=== PATIENT | male | born 1960 | race Caucasian/White ===

== ENCOUNTER 2017-05-15 08:40 | Outpatient (RCR) | payer OTHER, SELFPAY | END 2017-05-23 23:59 | LOC: NS 08:40 | PROVIDERS: Family Provider Internal Medicine; PCP Internal Medicine; Visit Provider Internal Medicine | DX: E66.9 Obesity, unspecified (principal); Z68.30 Body mass index [BMI] 30.0-30.9, adult; E88.81 Metabolic syndrome and other insulin resistance; Z71.3 Dietary counseling and surveillance | CPT/HCPCS: 97803 ==

== ENCOUNTER 2017-06-18 11:18 | Outpatient (RCR) | payer OTHER, SELFPAY ==
[2017-04-20 07:46] VITALS: BP 150/98; BMI 30.1
== END 2017-06-20 23:59 ==
LOC: NS 11:18
PROVIDERS: Family Provider Internal Medicine; PCP Internal Medicine; Visit Provider Internal Medicine
DX: E66.9 Obesity, unspecified (principal); Z68.30 Body mass index [BMI] 30.0-30.9, adult; E88.81 Metabolic syndrome and other insulin resistance; Z71.3 Dietary counseling and surveillance
CPT/HCPCS: 97803

== ENCOUNTER 2017-07-17 09:00 | Outpatient (RCR) | payer OTHER, SELFPAY | END 2017-07-17 09:01 | LOC: NS 09:00 | PROVIDERS: Family Provider Internal Medicine; PCP Internal Medicine; Visit Provider Internal Medicine | DX: E66.9 Obesity, unspecified (principal); Z68.30 Body mass index [BMI] 30.0-30.9, adult; E88.81 Metabolic syndrome and other insulin resistance; Z71.3 Dietary counseling and surveillance | CPT/HCPCS: 97803 ==

== ENCOUNTER → 2018-01-29 07:07 | Outpatient (CLI) | payer OTHER, SELFPAY ==
[2018-01-29 08:13] LABS: Absolute Lymphocyte Count 2.03 X10^3/ul (0.83-4.51); Absolute Neutrophil Count 3.4 X10^3/uL (2.0-7.7); Basophil# 0.03 X10^3/uL; Basophil% 0.5 % (0-1); Eosinophil# 0.27 X10^3/uL; Eosinophils% 4.4 % (0-5); Hematocrit 43.8 % (40-54); Hemoglobin 15.3 g/dl (13.0-16.5); Lymphocyte # 2.03 X10^3/ul (4.0); Lymphocyte % 32.8 % (19-41); Mean Corp Hgb Conc 34.9 g/gl (32-36); Mean Corpuscular Hgb 29.7 pg (27.0-32.0); Mean Platelet Vol. 10.5 fl (6.2-12.0); Monocyte# 0.45 X10^3/uL; Monocyte% 7.3 % (0-10); Neutrophil # 3.39 X10^3/uL (2.7-7.7); Neutrophil % 54.7 % (47-70); POSITIVE COUNT NO; POSITIVE DIFFERENTIAL NO; POSITIVE MORPHOLOGY NO; Platelet Count 220 K/mm3 (150-450); RBC Distribution Width CV 12.7 % (11.6-14.6); RBC Distribution Width SD 39.1 fl (35.1-43.9); Red Blood Count 5.15 M/mm3 (4.6-6.2); White Blood Count 6.2 K/mm3 (4.4-11.0)
[2018-01-29 08:30] LABS: Anion Gap 6 (5-15); BUN 17 mg/dL (7-18); BUN/Creat Ratio 22.3 RATIO (10-20); Chloride 105 mmol/L (98-107); Creatinine, Serum 0.76 mg/dL (0.70-1.30); EST Glomerular Filtration Rate 112 mL/min (>60); Est Glom Filt Rate - Afr Amer 135 mL/min (>60); Glucose 129 mg/dL (74-106); Magnesium 2.1 mg/dL (1.6-2.6); PSA,Total - Annual Screen 1.07 ng/mL (0.00-4.00); Potassium 3.5 mmol/L (3.5-5.1); Sodium Level 143 mmol/L (136-145)
== END ==
PROVIDERS: Family Provider Internal Medicine; PCP Internal Medicine; Referring Provider Nurse Practitioner Family; Visit Provider Nurse Practitioner Family
DX: I10 Essential (primary) hypertension (principal); R25.2 Cramp and spasm; Z12.5 Encounter for screening for malignant neoplasm of prostate
CPT/HCPCS: 36415; 80048; 83735; 84153; 85025; G0103

== ENCOUNTER → 2018-02-05 07:17 | Outpatient (CLI) | payer OTHER, SELFPAY ==
[2018-02-05 11:04] LABS: ALB/GLOB Ratio 1.2 RATIO (0.9-2.4); AST(SGOT) 18 U/L (15-37); Alanine Aminotransfer ALT/SGPT 41 U/L (16-61); Albumin, Serum 3.8 g/dL (3.2-5.0); Alkaline Phosphatase 88 U/L (45-117); Anion Gap 6 (5-15); BUN 18 mg/dL (7-18); BUN/Creat Ratio 21.1 RATIO (10-20); Chloride 103 mmol/L (98-107); Cholesterol 162 mg/dL (200); Creatinine, Serum 0.85 mg/dL (0.70-1.30); EST Glomerular Filtration Rate 98 mL/min (>60); Est Glom Filt Rate - Afr Amer 119 mL/min (>60); Globulin 3.1 g/dL (2.2-4.2); Glucose 114 mg/dL (74-106); High Density Lipoprotein 34 mg/dL; Potassium 3.3 mmol/L (3.5-5.1); Protein, Total 6.9 g/dL (6.4-8.2); Sodium Level 143 mmol/L (136-145); Triglycerides 180 mg/dL; Very Low Density Lipoprotein 36 mg/dL (5-40)
== END ==
PROVIDERS: Family Provider Internal Medicine; PCP Internal Medicine; Referring Provider Nurse Practitioner Family; Visit Provider Nurse Practitioner Family
DX: E78.5 Hyperlipidemia, unspecified (principal)
CPT/HCPCS: 36415; 80053; 80061

== ENCOUNTER → 2018-03-08 10:14 | Outpatient (CLI) | payer OTHER, SELFPAY ==
[2018-03-08 11:58] LABS: Hemoglobin A1c 5.9 % (4.2-6.3)
[2018-03-08 12:04] LABS: Anion Gap 7 (5-15); BUN 15 mg/dL (7-18); Calcium,Total 8.4 mg/dL (8.5-10.1); Chloride 106 mmol/L (98-107); Creatinine, Serum 0.79 mg/dL (0.70-1.30); EST Glomerular Filtration Rate 107 mL/min (>60); Est Glom Filt Rate - Afr Amer 129 mL/min (>60); Glucose 110 mg/dL (74-106); Potassium 3.6 mmol/L (3.5-5.1); Sodium Level 143 mmol/L (136-145)
== END ==
PROVIDERS: Family Provider Internal Medicine; PCP Internal Medicine; Referring Provider Nurse Practitioner Family; Visit Provider Nurse Practitioner Family
DX: E87.6 Hypokalemia (principal); R73.09 Other abnormal glucose; E88.81 Metabolic syndrome and other insulin resistance; E66.9 Obesity, unspecified
CPT/HCPCS: 36415; 80048; 83036

== ENCOUNTER → 2018-09-27 | Outpatient (CLI) | payer OTHER, SELFPAY ==
[2018-09-26 14:02] VITALS: BMI 29.1
[2018-09-27 12:53] LABS: Anion Gap 6 (5-15); BUN 18 mg/dL (7-18); BUN/Creat Ratio 26.2 RATIO (10-20); Calcium,Total 8.4 mg/dL (8.5-10.1); Chloride 106 mmol/L (98-107); Creatinine, Serum 0.69 mg/dL (0.70-1.30); EST Glomerular Filtration Rate 125 mL/min (>60); Est Glom Filt Rate - Afr Amer 152 mL/min (>60); Glucose 113 mg/dL (74-106); Potassium 3.7 mmol/L (3.5-5.1); Sodium Level 144 mmol/L (136-145)
== END | disposition home or self-care (01) ==
LOC: BIMLAB 07:59
PROVIDERS: Family Provider Internal Medicine; PCP Internal Medicine; Visit Provider Internal Medicine
DX: I10 Essential (primary) hypertension (principal)
CPT/HCPCS: 36415; 80048

== ENCOUNTER → 2018-11-29 08:06 | Outpatient (CLI) | payer OTHER, SELFPAY ==
[2018-11-15 09:30] VITALS: BMI 27.0
[2018-11-29 12:37] LABS: Anion Gap 5 (5-15); BUN 18 mg/dL (7-18); BUN/Creat Ratio 26.4 RATIO (10-20); Calcium,Total 8.8 mg/dL (8.5-10.1); Chloride 107 mmol/L (98-107); Creatinine, Serum 0.68 mg/dL (0.70-1.30); EST Glomerular Filtration Rate 126 mL/min (>60); Est Glom Filt Rate - Afr Amer 153 mL/min (>60); Glucose 100 mg/dL (74-106); Potassium 3.5 mmol/L (3.5-5.1); Sodium Level 144 mmol/L (136-145)
== END ==
PROVIDERS: Family Provider Internal Medicine; PCP Internal Medicine; Visit Provider Nurse Practitioner Family
DX: I10 Essential (primary) hypertension (principal)
CPT/HCPCS: 36415; 80048

== ENCOUNTER 2019-04-30 09:00 | Outpatient (RCR) | payer OTHER, SELFPAY ==
[2019-01-23 14:34] VITALS: BMI 26.9
--- NOTE | 2019-04-30 09:21 | BH.NA ---
Physical Data - Vital Signs Pulse Rate: 76 Respiratory Rate: 18 Blood Pressure: 136/70 - Height/Weight Height: 1.79 m Weight:: 85.275 kg Weight in Pounds: 188.0 lbs Current Medication Compliance - Medication Compliance Do you take your medication as prescribed?: Yes Nutritional History - Appetite Nutritional Instructions:: If client shows signs of a swallowing problem, weight change of 10 pounds or more in the last month, or is on a diabetic diet, the physician will review and request a dietitian consult, as appropriate. All unintentional weight loss will be referred to the physician for decision on need for dietitian consult. Describe your appetite:: Good Have you noticed a change in your eating habits lately?: No Additional nutritional information:: Client states he has a good appetite. States he mckenzie a lot of calories at work. Client states he has lost over 25lbs in the last 14 months, intentionally, from a better diet and working. Functional Assessment - Sleep Pattern Describe any problems with sleeping: Client states he sleeps about 7 hours per night on average. States his sleep has improved since his hospitalization at [facility]. Client states they talked to him about meditation and he uses that if he has trouble sleeping. - Activities Motor Activity:: Functional Sensory/Communication Assess - Vision Problems Do you have any vision problems?: Glasses - Communication Problems Do you have difficulty understanding what people are saying?: No What is your primary language?: Hungarian Medical Problems/History - Cardiac Conditions Cardiovascular: Hypertension, Hyperlipidemia - Genitourinary Conditions Comments:: hx kidney stones at age 17 - Gastrointestinal Conditions Comments:: GERD - Family History Family History: Family History (Last Reviewed 01/23/19 @ 14:34 by Noreen Galvez) Father Cancer Grandmother Cancer Surgical History - Surgical History Have you had any surgeries? If so, list type and date:: No Substance Abuse - Substance Abuse Please describe substance abuse in the last 30 days:: When asked about alcohol use, client states I drink socially. In further detail, client states he drinks usually 4 nights weekly, 1-2 beers or glasses of wine, and occasionally tequila. Client states he stopped smoking ciggarettes in 1998 after being a 2 pack per day smoker. Client states he uses marijuana at times. When asked about frequency, client laughs and says it varies, up to 2-3 times per week. Client states he uses cocaine in the for a short time. Mental Status Summary - Mental Status Significant Findings/Observations on Appearance and Mood:: Client is alert and oriented x 4. Client is neatly groomed and cooperative with assessment. Client makes good eye contact during entire assessment. Client with good attention and concentration. Client's voice has normal rate and volume, speech coherent and spontaneous. Client does not appear depressed or anxious, but is very talkative. Client has normal processing and makes logical associations. Client denies hallucinations or delusions. Client denies SI at this time and states he feels back to my baseline since hospitalization in March. Suicide Assessment - Suicidal Ideation Are you currently or have you been suicidal in the past?: Yes - denies SI at this time Suicidal Intentional Rating Scale (SIRS): Suicidal thoughts (past) Physician Notification: If Active suicidal thoughts/Will not contract for safety is checked, contact physician and document in the Physician Notification section below. Past Psychiatric History - MH Treatment Hx Past Psychiatric Medications:: Wellbutrin in 1998 Age of first mental health symptoms: Client states he had a suicide attempt in 1978, and states he was fine until he had depression in 1998 and was put on Wellbutrin for 6-8 months. Describe (age, circumstance, etc) any past hospitalizations: Client was hospitalized in March 2019 at [facility] for suicidal ideations. Client states his friend had just committed suicide the week prior and the day of his hospitalization, he felt like he had no support system. Current providers for mental health treatment (counselor, psychiatrist, continuous pillowcase cutter, etc.): does not currently have, but states his son gave him information for a counselor. Fall Risk Assessment - Age Age: Less than 60 - Mental Status Mental Status: Willing & able to ask for assistance when needed - Physical Status Physical Status: No problems - Impairments Impairments: None - Elimination Elimination: Continent AND independent - Gait or Balance Gait or Balance: Walks independently - Hx of Falls History of falls in the past 6 months: No known history - Medications/Substances Psychotropics:: Antidepressants Medications/substances used within the past 24 hours or ordered to administer: 1-2 of the medications/substances listed above - Total Score Total Points:: 1 RN Summary of Impressions - Impressions Recommendations: Include psychiatric and medical issues, treatment planning recommendations, and discharge planning needs. Impressions: Psychiatric Issues: major depressive disorder recurrent severe without psychosis - Level of Care How do the client's current symptoms and functional deficits support need for this level of care?: Client was recently hospitalized from April 09- at [facility] after a suicidal ideation. Client states he had a lot of stressors leading up to this event, but the day of his suicidal comment, he felt he had no support system and that he had been arguing with his and he felt his son would take his 's side so he felt unsupported. Client states work stress, being demoted at work, a friend that comitted suicide about a week prior to his hospitalization, and watching an emotional play directed by his son were all stressors that lead up to his suicidal ideation. Client states he felt emotionally drained, like my battery was just on 1% and not recharging. Client tearful when he talked about feeling like he had no support system directly prior to the hospitalization, but states he has since talked to his and son and knows that his son supports him too. Client states he now feels back to his baseline of function and my battery is charging again and he feels support from his family. IOP will promote gains and prevent further decompensation while providine social support and skills training.
[2019-04-30 10:31] VITALS: BP 136/70; PULSE 76; RESP 18
--- NOTE | 2019-04-30 11:20 | BH.SGPN.GN ---
Behaviors/Verbalizations/Mental Status: []Client alert and oriented, casually dressed and groomed. Eye contact good. Motor activity restless. Speech within normal limits. Affect congruent to topic being discussed, mood euthymic. Thoughts linear, logical, no signs of hallucinations or delusions. Client Response/Progress/Benefit: []Client passive participant AEB pt providing limited input however appeared to actively listen to others throughout session. Engaged in activity about facts and statistics of mental illness. Group identified the benefits of addressing stigma which included: increased self-confidence, takes some of the power away from stigma, increases personal and social awareness, and increases validation. Group brainstormed strategies to combat social and perceived stigma which included: education others, no longer using negative labels about mental illness, being open about mental health, and don't reinforce stigma. Client stated he will talk more openly with others about his mental health as a way to combat social and perceived mental health stigma. Appeared to benefit from increasing awareness of strategies to combat stigma. Will continue IOP tx to increase consistent application of coping skills, challenge distorted thoughts, and prevent decompensation. Narrative Note: []
--- NOTE | 2019-04-30 12:47 | PCM.BH.PSYEV ---
Psychiatric Evaluation - Initial Evaluation Initial Evaluation: History of Present Illness: [] Patient is a 58-year-old male who presents to the [facility] program after having a psychiatric admission at [facility] for depression with suicidal ideation. He was admitted to [facility] from April 09 to April 14, 2019. The patient has been for 17 years and currently lives with his his in a house that they rent. He works at [employer] in [place] for the past 15 months and this is a very stressful job for him. He has a 1 hour commute to get there and the volume of work during the holiday season really stressed him out. The day of his psych admission the patient verbalized suicidal thoughts by stating that he wanted to go to the [employer] and buy rat poison and he was sent to the emergency room. Patient had been demoted at work twice prior to his suicidal ideation at work. His mood had been decreased for the past few weeks prior to his admission due to the stress at work according to the patient. He feels he was unjustly demoted at work. The patient says that a friend also committed suicide shortly before he was admitted to the hospital and this added to his stress at the time. In addition he saw his son's play which is about mental illness and these he filled also triggered his suicidal ideation. Since the patient's discharge from the hospital he says he is feels much better. He denies any hopelessness, worthlessness or guilt for the past week or so. He said his mood is better and he states I am recharging.. He is disappointed in how things are managed at his workplace but he says that he knows he can change it so he feels he is able to deal with it now. He is back at work since a few days ago and is doing okay at work. They he changed jobs in the same department and he feels that maybe this will help his job stress. He says he is enjoying reading a lot which she has always enjoyed doing. He denies anhedonia. He says his appetite is good now and his sleep is up to 7 to 8 hours a night. His energy level he says is normal and his concentration is good. He says that he is having no suicidal ideation now. He denies any thoughts that he be better off in the past week or so. He denies any homicidal ideation, hallucinations or delusions. He denies any history of сергей. He says that he is not very anxious now and he is not having any panic attacks but he did have one panic attack at work about a month ago. He denies any OCD, eating disorder, history of self-harm, trauma, or pain or PTSD. He feels he may have had PTSD in 1978 when he was [place] but never saw combat and feels the symptoms have for the most part resolved. For primary support he has his stepson who is a counselor and has been a big source of support for the patient. He states his is an okay source of support and describes his marriage as normal, stable, supportive. There has been mild relationship conflict with his in recent months but he says that their marriage is fine. Current Psychiatric Medications: [] Butyrin XL 150 mg p.o. every morning (since about April 09, 2019). Past Psychiatric History: [] He has a history of 2 psych admits in the past. The first was in 1979 and or gone where he was admitted for trying to kill himself by carbon monoxide poisoning. He says that it did not work so he got up and went to the hospital. The second psych admit was in March 2019 and his is detailed above. So he has only history of one suicide attempt. His past psych meds the only time he has taken psych meds was in 1998 he took Wellbutrin XL for about 8 months because he was somewhat depressed. This medication helped him and it also helped him quit smoking at that time. He has never taken any other psych meds since 1998 until the current medication. He denies taking any other psych medication. He said he has never really had counseling until now at the [facility] program. He is trying to decide if he will get an individual counselor when he completes the IOP program. Substance Use History: [] The patient quit smoking in 1998. He drinks about 2-3 drinks of alcohol per week. He has sporadic marijuana use and states he uses maybe 1-2 times a week but the last time he used any marijuana was February 2019. He has never done rehab for any drugs. When he was in his 20s he did try cocaine, methamphetamine and mushrooms. No other drug use. Allergies: [] Lisinopril Medications: [] Return XL 150 mg p.o. every morning, hydrochlorothiazide, Cozaar, Zocor, Norvasc, Motrin, K-Dur, Prilosec, Skelaxin Past Medical History: [] GERD, hypertension, hyperlipidemia, metabolic syndrome. He denies having any surgeries but he did have a kidney stone at age 18. Family Psychiatric History: [] Patient's mother is 78 years old and his father is 83 years old. He feels his father is an alcoholic and has depression. But no one in his family has been diagnosed or treated. He has no suicides in the family. He has 1 brother who is now and had a lot of substance abuse and drug abuse issues. Personal/Social History: [] He was born and raised in [place] and [place]. He describes his childhood as normal. His parents were but when the patient was 9 years old. The patient and his brothers stayed with their father and their mother at various times in their childhood. He states he says that his father was verbally abusive and that the patient was never good enough for dad. He feels there was a history of emotional abuse by his father. He denies any physical or sexual abuse ever. He has 2 brothers and one half sister. The patient is the middle child. He was close to his brothers growing up and became teary during the interview when he discussed both of his brothers. One brother is and his youngest brother is has disappeared and cut off from the family several years ago and is believed to be in a cold somewhere. School was okay for him as a child but he said he was not underachiever. He graduated high school and attended college and received an associates degree in business management. He got at age 18 for the first marriage which lasted 1 year and produced 1 biological daughter. He has no contact with his biological daughter. Marriage #2 was when the patient was around age 29 and it lasted 5 years with no children. Marriage #3 is the current marriage which has been for 17 years and he has 2 stepchildren in this marriage. He is very close to the stepson but the stepdaughter he and his do not see. The patient has some guilt that his does not see her grandkids because she is to him. Legal History: [] The patient was in the in the [employer] in the past and received and a less than honorable discharge from the [employer] because he left early from his employment because he decided that he did not want to kill anyone. He did not see combat but he was waiting to be shipped overseas [place] for about 72 hours and that really stressed him out and he decided that he would defend his country on his own so well but did not want to go to another country and kill a soldier. Review of Systems: [] Negative except as in present illness Vital Signs: [] Reviewed in nursing notes and stable Mental Status Examination: [] patient is a 58-year-old male who appears normal for stated age or may be slightly older. He is casually dressed and groomed with good hygiene. The patient appears to minimize his mental health symptoms and uses intellectualization and a lot of humor as defense mechanisms. He is cooperative and pleasant during the interview. He has no psychomotor agitation or retardation. He has good eye contact and his speech is normal rate and rhythm with no pressure. Mood is euthymic. Affect is full and normal. Although the patient does dissolve into tears when discussing his brothers. Thought process: Goal-directed and organized but overinclusive at times. Thought content: No evidence of suicidal or homicidal ideation. No evidence of hallucinations or delusions. The patient tends to be overinclusive and especially when discussing his job and how his workplace operates. Reality testing is intact. Intelligence is average or above. Judgment is intact. Insight: Some present. Impulsivity low to moderate. Diagnoses: [] [place] I: [] Major depressive disorder recurrent severe without psychosis [place] II: [] Deferred [place] III: [] Hypertension [place] IV: [] Number support, work issues Plan: [] We will start the IOP program at the [facility] as the structure, education, support, individual and group therapy will hopefully prevent worsening of the patient's symptoms that might require rehospitalization. Patient felt safe during the interview and if at any time he does not feel safe he will let us know at the IOP program or go to the emergency room. The risk, pop options, possible side effects and complications of the medications were discussed with the patient and he understands and accepts these. He will continue the Wellbutrin XL at the current dose since he has been on it for less than 1 month and his symptoms seem to have improved. I will encourage the patient to continue with counseling when he is finished with the IOP program. I will follow-up with the patient in 2 weeks.
--- NOTE | 2019-04-30 13:05 | BH.DR.ITP ---
Initial Treatment Plan - Patient Information Visit Information: ADMISSION DATE: EXPECTED LOS: 4-6 weeks - Problems/Symptoms Problem #1:: Depression Symptom:: sadness, suicidal ideation, rumination Problem #2:: Anxiety at work Symptom:: rumination and panic attack at work
--- NOTE | 2019-05-01 08:58 | BH.MDN ---
Multi-Disciplinary Note - Note 45-min Individual Time Started:: 12:12 Date: 05/01/19 Purpose of session/treatment goals addressed:: Purpose of this session was to establish rapport with pt, gather additional information regarding pt current functioning, symptoms, and stressors impacting mental health. Additional purpose was to discuss tx expectations and begin development of treatment goals. Eye Contact:: Good Motor Activity:: Appropriate Appearance:: Neat, Casual Speech:: Pressured Mood:: Anxious, Dysthymic Affect:: Full Thoughts:: Linear, Logical, No evidence of hallucinations/delusions noted Staff Interventions:: Therapist asked open ended and furthering questions to gather additional information regarding pt's symptoms, current stressors, as well as events leading to IOP admission. Worked with client to explore treatment goals to address in IOP tx. Therapist used strengths perspective to build rapport and help pt identify personal positives and resilience factors. Therapist used empathic responses to provide emotional validation. Applied PR techniques to explore coping strategies that have helped in the past with mental health sx management. Client Response:: Pt open to meeting with this therapist and remained actively engaged throughout session. He reports that his first day in IOP went well and that he enjoyed the shared experience factor of group but is worried he is ?talking too much?. Went on to indicate often feeling like he is bothering or annoying others with his input and expressed that he often internalizes other?s reactions or emotions, assuming that they are directed towards him. He discussed that this is primarily what had influenced his increase in negative and intrusive thoughts resulting in increased depression and suicidal ideation over the past several weeks. Pt discussed that his largest trigger for depression and emotion dysregulation is worrying about how he is being viewed by others. Shared wanting to increase ?personal supports? and improve his ability to communicate with others so ?that it is not so prickly?. Discussed additionally wanting to decrease focus on other?s behaviors and decisions as he often struggles with agitation when feeling his coworkers are not doing their job. Currently endorsing sx of increased agitation and anxiety especially in the workplace, ruminating thoughts, depression, and low self-worth. Noted current sx have impacted ability to function at baseline and resulted in impacts on personal and occupational functioning. Pt identified tx goals as improving emotion regulation skills, improving self-esteem, and identifying healthy means of coping. Risks/Concerns:: No risks or concerns noted. Pt denies any active SI though reports passive thoughts of not wanting to be alive. Reports as major protective factor. Denies any plan, or intent as of this date 05/01/19. Future oriented and reports plans to spend time with his this evening. Pt aware of and willing to utilize the local crisis resources should he feel unable to maintain safety at any time. Progress Toward Goals/Plan:: Pt new to IOP tx and this is his 2nd day in program, therefore limited progress currently noted. Reports he is motivated to make improvements for his mental health and relationships within the workplace as this is his primary stressor. Pt reports a desire to work on challenging distorted thought patters. He endorses a depressed and anxious mood, negative thinking, self-deprecation, and irritability. Identified goals for treatment as: improve ability to identify and challenge distorted thoughts, reduce use of personalization and self-deprecation, improve application of healthy coping skills, and decrease depression. Will continue IOP to prevent decompensation, maintain safety, improve daily functioning, and increase mood stability. Time Stopped:: 12:50
--- NOTE | 2019-05-01 09:00 | BH.SGPN.GN ---
Behaviors/Verbalizations/Mental Status: []Eye contact is good. Motor activity is appropriate. Appearance is casual, grooming neat and appropriate. Speech is Appropriate rate and tone. Mood is dysthymic. Affect is congruent. Thoughts are linear and logical. No evidence of psychosis. Reviewed daily check in sheet and pt denies any active SI, plan, or intent as of this date. Client Response/Progress/Benefit: [Pt responded well to session, engaged throughout and open to processing with the group. Pt indicated current emotion as ?comfortable? and discussed that this is due to being able to recognize where he had been using a distorted thought the previous date and successfully challenged it. Pt identified this as a mental health ?win? and went on to share that he had been able to challenge thoughts of ?they are only talking to me because they are friends with my . They don?t want to be friends with me?. Pt noted that challenging this was empowering and helped improve his overall mood. Went on to describe additional win as taking the initiative to begin doing some light house work he has been avoiding and shared that this felt both accomplishing and reduced stress. Current stressor identified as feeling anxious about an upcoming [facility] appointment. Appeared to benefit from support of the group and displaying progress in ability to apply thought challenging skills per pt self-report. Pt recommended continued IOP tx to prevent decompensation, promote application of healthy coping skills, and increase insight into own mental health.] Narrative Note: []
--- NOTE | 2019-05-01 10:17 | BH.SGPN.GN ---
Behaviors/Verbalizations/Mental Status: []Client alert and oriented, neatly dressed and groomed. Eye contact good. Motor activity appropriate. Speech within normal limits. Affect congruent, mood euthymic. Thoughts linear, logical, no signs of hallucinations or delusions. Client Response/Progress/Benefit: []Client receptive of session, attentive in discussion and activity. Client connected with the quote and shared, ?you need to express yourself constructively not bottle up.? Client gave an example of a time when he shut down which then made his supports concerned and upset. Group identified barriers that impact one?s ability to communicate when emotions are high. These barriers included; shutting down, not being able to think clearly, lack of awareness of emotions, mental health symptoms, and not seeing a different perspective. Group identified the benefits of being able to effectively regulate emotions which included; better quality of life, better relationships, less stress, less negative consequences, and better communication. Client was active during the activity and did well to connect it back to his daily life. Client appeared to benefit from increasing awareness of how emotions can impact communication and interactions in one?s life. Client?s second day of IOP. Will continue to prevent decompensation of depressive symptoms and to improve mood stability. Narrative Note: []
--- NOTE | 2019-05-01 11:21 | BH.SGPN.GN ---
Behaviors/Verbalizations/Mental Status: []Client alert and oriented, casually dressed and groomed. Eye contact good. Motor activity appropriate. Speech within normal limits. Affect congruent to topic being discussed, mood euthymic. Thoughts linear, logical, no signs of hallucinations or delusions. Client Response/Progress/Benefit: []Client attentive and contributing to discussion. Attentive during psychoeducation on 4 zones of regulation. Client able to identify how he feels in each zone as well as how he acts in each zone. Client able to identify what behaviors he exhibits when in the different emotional zones. Client identified coping skills he can use to support self in each zone which included: processing emotions appropriately, opposite action, helping someone in need, journaling, meditation, and setting goals. Client stated he wants to focus on the skill of meditation to help calm himself down when he needs to be in the green zone. Benefited from increased education on zones of regulation or stages of alertness for emotions and healthy coping skills to use for each zone. Will continue IOP tx to improve healthy coping, prevent decompensation, and challenging distorted thoughts. Narrative Note: []
--- NOTE | 2019-05-01 11:39 | BH.MTP ---
Master Treatment Plan - Patient Information Program Physician:: Dr. Susana Spencer Primary Therapist:: Kinsey Riggins - Estimated LOS Estimated LOS (in weeks):: 6 Problem/Goal #1 - Problem/Goal #1 Stated Goal:: Client will reduce depressive symptoms, suicidal ideation, feelings of hopelessness, sadness, and negative thoughts through Intensive Outpatient Program. Description of Barriers: Client has various psychosocial stressors causing increased stress, ruminating negative thoughts, and impacting his ability to function at baseline. Client has a hx of difficulties in regulating his emotions and using passive-aggressive communication during times of interpersonal stress. Client is limited in levels of insight regarding mental health and struggles with application of emotion regulation skills per self-report. Additionally, client reports low self-esteem due to distorted thinking patterns, negative thinking, poor boundaries, passive suicidal ideation, and cognitive distortions that exacerbate symptoms. Functional Impact: Patient is a 58-year-old male who presents to the [facility] program after having a psychiatric admission at [facility] for depression with suicidal ideation. He was admitted to [facility] from April 09 to April 14, 2019. The patient works at [employer] for the past 15 months and this is a very stressful job for him, often having increased conflict with co-workers. The day of his psych admission the patient verbalized suicidal thoughts by stating that he wanted to go to the [employer] store and buy rat poison and he was sent to the emergency room. Patient had been demoted at work twice prior to his suicidal ideation at work. His mood had been decreased for the past few weeks prior to his admission due to the stress at work according to the patient. He feels he was unjustly demoted at work. The patient says that a friend also committed suicide shortly before he was admitted to the hospital and this added to his stress at the time. Reports difficulties in setting boundaries and managing emotions during times of increased conflict. Denies Active SI, plan, or intent. Pt currently endorsing symptoms of depression, worthlessness, and passive thoughts of . Additionally, indicated ruminating thoughts, irritability, poor emotion regulation, and mood swings. Pt?s current sx are impacting ability to function at baseline, as well as effecting personal, social, and occupational areas. Goal Relevant Strengths/Supports: Client is approachable, resilient, and motivated to improve mental health sx management. - Objectives Objective #1 Stated Objective: Pt will decrease depressive symptoms AEB pt?s score on the DSM 5 cross-cutting measure and improve pt?s daily functioning. Interventions: Through groups and individual therapy, pt will be provided with education on cognitive distortions, mistaken beliefs, and identifying and combating stress. Therapist will assist pt with calming skills as well as increasing healthy coping strategies. Discharge Criteria: Pt will have met this goal when pt?s score on the DSM 5 cross cutting measure for depression has been decreased and per pt?s report daily functioning has improved. Target Date: 06/11/19 Review Date: 05/28/19 Objective #2 Stated Objective: Client will learn and utilize 2-3 healthy coping strategies to manage depressive symptoms and improve emotion regulation skills. Interventions: Therapist will assist client in learning internal coping strategies to manage depressive symptoms, along with helping client identify triggers. Discharge Criteria: Client will have achieved this goal when can verbalize and has practiced at least 2 healthy coping strategies. Target Date: 06/11/19 Review Date: 05/28/19 Problem/Goal #2 - Problem/Goal #2 Stated Goal:: Reduce overall frequency, intensity, and duration of the anxiety so that daily functioning is not impaired. Description of Barriers: Client has various psychosocial stressors causing increased stress, ruminating negative thoughts, and impacting his ability to function at baseline. Client has a hx of difficulties in regulating his emotions and using passive-aggressive communication during times of interpersonal stress. Client is limited in levels of insight regarding mental health and struggles with application of emotion regulation skills per self-report. Additionally, client reports low self-esteem due to distorted thinking patterns, negative thinking, poor boundaries, passive suicidal ideation, and cognitive distortions that exacerbate symptoms. Functional Impact: Patient is a 58-year-old male who presents to the [facility] program after having a psychiatric admission at [facility] for depression with suicidal ideation. He was admitted to [facility] from April 09 to April 14, 2019. The patient works at [employer] in [place] for the past 15 months and this is a very stressful job for him, often having increased conflict with co-workers. The day of his psych admission the patient verbalized suicidal thoughts by stating that he wanted to go to the [employer] store and buy rat poison and he was sent to the emergency room. Patient had been demoted at work twice prior to his suicidal ideation at work. His mood had been decreased for the past few weeks prior to his admission due to the stress at work according to the patient. He feels he was unjustly demoted at work. The patient says that a friend also committed suicide shortly before he was admitted to the hospital and this added to his stress at the time. Reports difficulties in setting boundaries and managing emotions during times of increased conflict. Denies Active SI, plan, or intent. Pt currently endorsing symptoms of depression, worthlessness, and passive thoughts of . Additionally, indicated ruminating thoughts, irritability, poor emotion regulation, and mood swings. Pt?s current sx are impacting ability to function at baseline, as well as effecting personal, social, and occupational areas. Goal Relevant Strengths/Supports: Client is approachable, resilient, and motivated to improve mental health sx management. - Objectives Objective #1 Stated Objective: Pt will decrease anxiety symptoms AEB pt?s score on the DSM 5 cross-cutting measure and improve pt?s daily functioning. Interventions: Through groups and individual therapy, pt will be provided with education on cognitive distortions, calming/distress tolerance skills, and identifying and combating stress. Therapist will assist pt with calming skills as well as increasing healthy coping strategies. Discharge Criteria: Pt will have met this goal when pt?s score on the DSM 5 cross cutting measure for anxiety has been decreased and per pt?s report daily functioning has improved. Target Date: 06/11/19 Review Date: 05/28/19 Objective #2 Stated Objective: Client will learn and implement 2-3 effective communication skills during times of conflict to empower client to communicate thoughts and feelings rather than suppress emotions or escalate to crisis. Interventions: Therapist will teach client effective communication and conflict resolution skills and will provide homework for client to practice communication skills outside of sessions. Therapist will work with pt to engage his supports in tx process through completion of family/support session. Discharge Criteria: Client will have achieved this objective when reports experiencing increased ability to communicate effectively with supports during times of disagreement or conflict without shutting down or escalating to point of crisis. Target Date: 06/11/19 Review Date: 05/28/19
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
--- NOTE | 2019-05-02 09:05 | BH.SGPN.GN ---
Behaviors/Verbalizations/Mental Status: [] Eye contact is good. Motor activity is appropriate. Appearance is casual. Speech is Appropriate. Mood is euthymic. Affect is full. Thoughts are linear and logical. No evidence of psychosis. Reviewed daily check in sheet and no reports of suicidal ideations or intent. Client Response/Progress/Benefit: [] Pt was an active participant in group discussion. Emotion for today is relaxed. Daily symptom tracker does not identify any struggles with emotions. Shared that after attending group yesterday he was motivated to have a discussion with his regarding his needs and some expectations. Stated I spoke very openly with my regarding thier relationships and communication. He reports that she was receptive and the conversation was positive. Reports increased confidence in his support. Able to identify that he was nervous about the conversation. Relationship conflict has led to worsening depression in the past several months. Benefited from group support, encouragement, and feedback. Progress noted. Will continue in IOP to maintain safety, prevent decompensation, and increase healthy coping skills. Narrative Note: []
--- NOTE | 2019-05-02 10:05 | BH.SGPN.GN ---
Behaviors/Verbalizations/Mental Status: []Client alert and oriented, neatly dressed and groomed. Eye contact good. Motor activity appropriate. Speech within normal limits, but off topic at times. Affect congruent, mood euthymic. Thoughts linear, logical, no signs of hallucinations or delusions. Client Response/Progress/Benefit: []Client active participant as shown by client?s contribution to discussion and positive insight. Client agreed with peers that self-care is important and stated, ?without self-care you can?t do anything for anyone else.? Client helped the group discuss benefits of self-care. Benefits included; improved relationships, more patience, less stress, more tolerance for stressors, and increased self-worth. Client participated in the discussion of the common myths about self-care including self-care is selfish, always fun, too much effort and time, and not worth it. Client participated in the discussion and debunking of these myths. Client was very active in challenging the myths that keep people from practicing self-care and stated, ?self-care impacts everything.? Client seemed to benefit from increased awareness of the importance of self-care and challenging common myths that prevent clients from practicing self-care. Client?s first week of IOP, no progress to document at this time. Will continue IOP tx to prevent decompensation, maintain safety, and improve mood stability. Narrative Note: []
--- NOTE | 2019-05-02 11:05 | BH.SGPN.GN ---
Behaviors/Verbalizations/Mental Status: []Client alert and oriented, neatly dressed and groomed. Eye contact good. Motor activity appropriate. Speech within normal limits. Affect congruent, mood euthymic. Thoughts linear, logical, no signs of hallucinations or delusions. Client Response/Progress/Benefit: []Client receptive of session, actively listening and contributing to discussion. Willing to complete worksheet activity and helped the group identify self-care activities. Participated as the group further processed the activity and connected that maintaining self-care requires balancing life stressors and making oneself a priority. Client completed self-assessment activity on the different areas of self-care and was able to identify current practices he uses and identify areas he can improve upon. Client reported he can improve his psychological self-care. Client set a goal to improve in the area of psychological self-care. Client stated he has been trying to journal about difficult situations so that he can get out his emotions and then look back at the situation logically later. Client shared this would benefit client because it would help client process his stressors and challenge negative thoughts. Client appeared to benefit from increasing awareness of how he can improve his self-care balance. Client?s first week of IOP. Will continue IOP tx to prevent decompensation and challenge distortions that reinforce depression. Narrative Note: []
--- NOTE | 2019-05-05 09:05 | BH.SGPN.GN ---
Behaviors/Verbalizations/Mental Status: []Client alert and oriented, casual dress, hygiene tended to. Eye contact good. Motor activity appropriate. Speech within normal limits. Affect congruent, mood euthymic. Thoughts linear, logical, no signs of hallucinations or delusions. Reviewed client?s symptom tracker, no signs of suicidal ideation, plan, or intent as of today. Client Response/Progress/Benefit: [] Patient responded well to session as evidenced by openly sharing thoughts and feelings and attentive to others. Patient identified a mental health positive is having a interview at his job for a leadership position. Patient stated if he is able to move to leadership position he believes his stress at work will decrease tremendously because will be able to keep others accountable and have authority to do so. Patient identifying additional positive is going to lunch with his [id number] for her 89th birthday alliance party. Patient identified emotion for today is hopeful. Patient recommended to continue IOP level of care to increase healthy coping, improve awareness of distorted thought patterns, and prevent decompensation. Narrative Note: []
--- NOTE | 2019-05-05 10:20 | BH.SGPN.GN ---
Behaviors/Verbalizations/Mental Status: []Eye contact is good. Motor activity is appropriate. Appearance is casual. Speech is Appropriate. Mood is euthymic. Affect is congruent. Thoughts are linear and logical. No evidence of psychosis. Client Response/Progress/Benefit: []Client was an active participant in group discussion and activity. Commented on the quote sharing that people can stay on the easy path, even if it is an unhealthy path because of ?peer pressure.? Group identified several definitions of pitfalls which included; engaging in choices that keep us stuck, unexpected dangers, and unforeseen difficulty. The group discussed the consequences of continuing to fall into pitfalls or not address pitfalls which included; hospitalization, increased mental health symptoms, and loss of employment or relationships. Attentive during psychoeducation on the impact of how one inderjit with or manages pitfalls in regard to mental health. Group worked together to identify what keeps us stuck or vulnerable to pitfalls which included; lack of resources, stigma, feeling uncomfortable, it is hard to go against the norm, and difficulty seeing the big picture. Client shared overcoming pitfalls can promote mental health balance and increase confidence. Benefited from increased awareness on the impact that pitfalls can have on mental health. Progress noted as shown by client?s report of applying coping skills learned in group. Will continue IOP tx to prevent decompensation and challenge negative thinking patterns. Narrative Note: []
--- NOTE | 2019-05-05 11:21 | BH.SGPN.GN ---
Behaviors/Verbalizations/Mental Status: [Client alert and oriented, casually dressed and groomed. Eye contact good. Motor activity appropriate. Speech within normal limits. Affect congruent, mood anxious, euthymic. Thoughts linear, logical, no signs of hallucinations or delusions.] Client Response/Progress/Benefit: []Client receptive of session, engaged throughout AEB client actively listening during discussion, providing input, and taking notes. Listened and processed activity with group and connected it to overcoming personal pitfalls in life. Client completed a worksheet where pt identified personal pitfalls impacting mental health progress. Identified pitfalls as: talking about problems, dealing with the loss of family, and learning a new job. Client agreed that with awareness and use of healthy coping skills, it is possible to prevent or better manage pitfalls. Discussed this has been difficult in the past due to getting caught up in old habits or impatience. Attentive during psychoeducation on strategies to overcome pitfalls. Client stated he will work on pitfall of learning a new job by reminding himself it?s okay if he isn?t perfect and being open to change. Benefited from identifying personal pitfalls and strategies to overcome these pitfalls, as well as support provided by group. Progress noted as client reported improved mood on this date as well as increased awareness. Will continue IOP tx to reduce depression, promote healthy change behaviors, and prevent decompensation. Narrative Note: []
--- NOTE | 2019-05-08 10:10 | BH.SGPN.GN ---
Behaviors/Verbalizations/Mental Status: []Client alert and oriented, casually dressed and groomed. Eye contact good. Motor activity appropriate. Speech quiet, shut down during group. Affect full at the beginning of session, flat at the end, mood euthymic then depressed. Thoughts linear, logical, no signs of hallucinations or delusions. Client Response/Progress/Benefit: []Client active participant during group AEB client contributing to discussion and making connections throughout. Client shared having supports helps a person overcome hardships and can make life easier. Client reported one cannot only rely on one person for support and stated it is important to have a variety of supports. Client helped group brainstorm potential consequences of not having a support system and barriers to developing social supports, which included: feeling like a burden, shame, pride, anxiety, and lack of resources. Group identified benefits of social support as increased confidence, less stress, and improved relationships. Client reported supports can also help people increase awareness of warning signs and progress. Client took an active role during the group activity at first, but then client became withdrawn. It seemed that client was triggered by the group?s lack of success. Appeared to benefit from gaining awareness of barriers that keep people from seeking social support as well as identifying the benefits of increasing support. Variable progress as client often appears like he is doing well, but his emotional regulation struggles when client faced with challenges. Narrative Note: []
--- NOTE | 2019-05-08 10:38 | BH.MDN ---
Multi-Disciplinary Note - Note 60-min Individual Time Started:: 09:15 Date: 05/08/19 Purpose of session/treatment goals addressed:: Purpose of this session was to assess current symptoms, stressors, and tx progress. Another purpose was to was to discuss strategies for improving emotion regulation and discuss locus of control within the workplace. Eye Contact:: Good Motor Activity:: Appropriate Appearance:: Casual Speech:: Appropriate Mood:: Irritable, Dysthymic Affect:: Congruent Thoughts:: Linear, Logical, No evidence of hallucinations/delusions noted Staff Interventions:: Therapist asked open ended and furthering questions to gather additional information regarding pt's current symptoms, stressors, and progress in treatment. Therapist used empathic responses and supportive feedback to provide emotional validation. Provided psychoeducation on locus of control and gently challenged use of distorted thought patterns, specifically that of absolutes and personalization. Therapist applied NH techniques to promote healthy change behaviors and establish small emotion regulation goals. Client Response:: Pt open to meeting with this therapist, remained actively engaged throughout, and open to discussing current sx and stressors impacting mental health. Discussed feeling mostly positive on this date as he noted having a successful interview to be considered for a promotional position at work and is now in the pool of potential employees to be promoted when an opening occurs. Shared this made him feel more appreciated and as though his contributions are valued. Pt discussed this is a positive change as he had not felt this way previously. Went on to express that feelings of being dismissed or undervalued are largely what had contributed to his depression and ultimately hospitalization last month. Indicated feeling this way both in his personal and professional life and expressed often struggling to identify means of communicating this without it resulting in increased stress or potential conflict. 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 Reported he is often tempted to take on the responsibility of ensuring other employees are doing their job correctly or up to his personal expectations and standards. Indicated that this impacts his own mental health when coworkers have become upset or responded negatively to him. Expressed difficulties in not personalizing when coworkers are given positive feedback and he is not. Insight that he may be unnecessarily be stressing himself out by taking on responsibility of ensuring other's do thier job when that not part of his role as an employee. Open to beginning to challenge use of distorted thought patterns and relying on focusing on the external rather than areas within his own control. Pt shared having few in the moment strategies for regulating his emotions when feeling overwhelmed or struggling with distorted thoughts. Remainder of session spent discussing in the moment skills pt can use to prevent responding based on emotion and increase time to process and reflect prior to responding. Shared he is into music and often finds lyrics to be soothing. Willing to begin tking a moment to recite a verse of a song in his head to delay immediate response time before reacting on impulse to others comments and then ask himself Is this my responsibility? and Will this be beneficial for me to address or can I let this one go right now?. Risks/Concerns:: None noted. Pt denied having any active suicidal ideations, plan, or intent as of this date 05/08/19. Future oriented and able to identify protective factors which include his and family. Willing to use local crisis resources should he feel unable to maintain safety at any time. Progress Toward Goals/Plan:: Limited progress noted as pt often struggles with externalized locus of control which impacts ability to recognize where his own thoughts and reactions may be impacting others interpretations and responses to him. Shared improved overall mood, though expressed this is related to being considered for a promotion at work which continues to reinforce reliance on external validation for his own sense of self worth. Continued reports of struggling to communicate with others when feeling upset or frustration. Improved use of calming skills outside group environment AEB self-report of taking time to do small cleaning tasks, spending time with his , and putting together puzzles. Recommended continued IOP tx to improve emotion regulation, increased insight and ability to challenge distorted thoughts, as well as prevent further decompensation. Time Stopped:: 10:20
--- NOTE | 2019-05-08 11:10 | BH.SGPN.GN ---
Behaviors/Verbalizations/Mental Status: []Client alert and oriented, casually dressed and groomed. Eye contact good. Motor activity appropriate. Speech within normal limits. Affect congruent, mood euthymic. Thoughts linear, logical, no signs of hallucinations or delusions. Client Response/Progress/Benefit: []Client was an active participate during second group, but he became withdrawn and quiet during third group. Client took notes, but he declined to share or provide input to discussion. Client listened to discussion about the different types of support and benefits different types of support can provide. Client listened as the group identified strategies for improving development of new supports and better utilization of current supports. Client identified he would like to increase his personal support by re-establishing relationships that may have fallen apart. Client completed the worksheet, but he did not verbalize the steps he can take to accomplish this goal. Client seemed to benefit from identifying a type of support he would like to improve upon and identifying small steps to take. Progress limited as client continues to struggle with emotional dysregulation and negative thinking. Will continue IOP level of care to prevent decompensation of depressive symptoms and improve ability to cope with daily stressors. Narrative Note: []
--- NOTE | 2019-05-09 09:05 | BH.SGPN.GN ---
Behaviors/Verbalizations/Mental Status: []Client alert and oriented, neatly dressed and groomed. Eye contact good. Motor activity appropriate. Speech within normal limits. Affect full, mood euthymic. Thoughts linear, logical, no signs of hallucinations or delusions. Reviewed client?s symptom tracker, no risk for suicidal ideation, plan, or intent as of 05/09/19 Client Response/Progress/Benefit: [] Client responded well to session, but struggled to identify many mental health wins or stressors. Client first reported there's nothing new to report but with further prompting client able to elaborate. Client reports feeling supportive today which client described as feeling like he is being supportive to others in his life. Client stated he has some stress about upcoming events for his 's family this weekend, but client shared I'm handling it and getting things done. Client reported that although there is stress involved with his 's family coming, client is also looking forward to seeing people he has not seen in a while. Client unable to identify any recent coping skills he has used and denies any negative thoughts. It appears that client may use minimization of his symptoms in order to present higher functioning. Will continue IOP tx to promote use of healthy coping skills, improve emotional regulation, and improve daily functioning. Narrative Note: []
--- NOTE | 2019-05-09 10:11 | BH.SGPN.GN ---
Behaviors/Verbalizations/Mental Status: [Client alert and oriented, casually dressed and appropriately groomed. Eye contact good. Motor activity appropriate. Speech within normal limits. Affect congruent, mood agitated and dysthymic. Thoughts linear, logical, no signs of hallucinations or delusions. ] Client Response/Progress/Benefit: []Client was an active participant in group activity and provided some input to discussion. Client connected with the topic of obstacles and solutions and worked with group to identify common internal and external barriers that keep people stuck. Pt identified anger, resentment, fear, and doubt as potential internal barriers that could prevent progress towards desired reality. 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 Sometimes I need to row, sometimes I need to be the captain, sometimes I?m a passenger?. Client shared a realistic, desired reality would be feeling more capable of knowing when to take on what role and spending less time in the ?passenger? or as a passive observer in his own life. Benefited from group as client was able to identify current mental health state and barriers that are impacting progress, however at times continued to struggle with focusing on external barriers. Will continue IOP to prevent decompensation, improve anxiety management and emotion regulation, as well as reduce mental health sx severity. Narrative Note: []
--- NOTE | 2019-05-09 11:15 | BH.SGPN.GN ---
Behaviors/Verbalizations/Mental Status: []Client alert and oriented, casual in appearance. Eye contact good. Motor activity appropriate. Speech within normal limits. Affect congruent, mood euthymic. Thoughts linear, logical, no signs of hallucinations or delusions. Client Response/Progress/Benefit: []Client was an active participant in group discussion and activity. Client stated he is comfortable with his current reality because feels like he is moving forward in life. Pt able to identify fear, doubt, and misunderstanding as obstacles that could negatively impact client's progress. Client identified open communication with supports as a way he is helping himself move forward in life. Active during activity and providing ideas on how to cope with internal barriers. Client along with peers identified various obstacles during the activity and developed strategies to overcome those obstacles to wellness and desired reality. Benefited from group by identifying obstacles and solutions to maintain current reality. Client recommended to continue IOP to increase healthy coping, challenge distorted thoughts and prevent decompensation. Narrative Note: []
--- NOTE | 2019-05-14 09:00 | BH.SGPN.GN ---
Behaviors/Verbalizations/Mental Status: []Eye contact is good. Motor activity is appropriate. Appearance is casual, grooming appropriate. Speech is Appropriate rate and tone, inappropriate comments at times. Mood is euthymic. Affect is congruent. Thoughts are linear and logical. No evidence of psychosis. Reviewed daily check in sheet and pt denies any active SI, plan, or intent as of this date. Client Response/Progress/Benefit: []Client responded well to session, attentive and providing to discussion. Client reports feeling relaxed today and denies having any stressors today. Client reported he had an interview for a promotion at work and I passed so they're inclined to promote me. Client shared he is looking forward to this promotion because I'll get to work with people that actually work. Client unable to identify coping skills that helped him manage emotions during the interview. Difficult to determine if client's report of no stressors is a way of minimizing symptoms as client has done this in previous sessions. Will continue to monitor his moods and negative thought patterns. Appeared to benefit from connecting with peers and reflecting on wins. Will continue IOP tx to promote mood stability, reduce negative thinking, and improve interpersonal relationship skills. Narrative Note: []
--- NOTE | 2019-05-14 10:14 | BH.SGPN.GN ---
Behaviors/Verbalizations/Mental Status: []Client alert and oriented, casually dressed and appropriately groomed. Eye contact good. Motor activity appropriate. Speech within normal limits. Affect congruent, mood euthymic. Thoughts linear, logical, no signs of hallucinations or delusions. Client Response/Progress/Benefit: []Client participated in discussion and connected with peers. Client connected with discussion on impact anxiety can have on behavior. Client gained awareness of personal physical symptoms of anxiety. Client shared some of his physical symptoms of anxiety include: headaches, gastrointestinal problems, and chest tightness. Client identified humor, deflection, and avoidance as a safety behaviors has engaged in that provide short term relief but increase anxiety over time. Client appeared to benefit from gaining insight to safety behaviors and how anxiety manifests itself, as well as harmful impact of safety behaviors on mental health. Will continue IOP to prevent decompensation of symptoms, increase healthy coping and challenge distorted thoughts. Narrative Note: []
--- NOTE | 2019-05-14 11:19 | BH.SGPN.GN ---
Behaviors/Verbalizations/Mental Status: []Client alert and oriented, casual in appearance. Eye contact good. Motor activity appropriate. Speech within normal limits. Affect congruent, mood anxious and euthymic. Thoughts linear, logical, no signs of hallucinations or delusions. Client Response/Progress/Benefit: []Pt an active participant during discussion, providing input to discussion and examples throughout. Did well to share the floor and listen to others which indicates progress. Pt able to connect with the discussion reviewing three categories of skills for managing anxiety which included mind-based, body-based, and self-soothing. Listened to group brainstorm various skills within the different categories. Pt identified he is willing to try progressive muscle relaxation to increase his use of body-based relaxation skills. Provided personal example of struggling in identifying physical anxiety sx. Pt seemed to benefit from increased awareness of healthy skills to manage anxious symptoms and identifying skills willing to practice outside treatment environment. Pt progress noted in increased engagement and ability to make connections with materials reviewed. Recommended to continue IOP level of care to continue to increase healthy coping skills, identify and challenge distorted thoughts, improve emotion regulation and prevent decompensation. Narrative Note: []
--- NOTE | 2019-05-21 09:05 | BH.SGPN.GN ---
Behaviors/Verbalizations/Mental Status: []Eye contact is good. Motor activity is appropriate. Appearance is casual. Speech is WNL. Mood is dysthymic. Affect is constricted. Thoughts are linear and logical. No evidence of psychosis. Reviewed daily check in sheet and no reports of suicidal ideations or intent. Client Response/Progress/Benefit: []Pt participated during group discussion and attentive as others shared throughout, providing some feedback. Emotion for today is ?excited? and pt attributed this to finally feeling better and looking forward to having the energy to accomplish a few things around the house today. Initially struggled to identify mental health wins, thought with assistance from therapist pt was able to do so. Indicated using opposite action to motivate himself to shave today despite not feeling like it and struggling with motivation. Shared that he had reminded himself ?this will make you feel better?. Additional win described as taking the initiative to use the ride to and from work for self-care. Described playing music to energize him on way to work or relax him on the way home. Stressor reported as the need to get a few things done at home and not having the opportunity while he had been sick. Shared he is planning to do so tonight. Progress noted in pt self-report of reduced depression, however continues to struggle with insight and skill application outside tx environment. Benefited from group support. Will continue in IOP to maintain gains, prevent decompensation, and increase healthy coping. Narrative Note: []
--- NOTE | 2019-05-21 10:08 | BH.SGPN.GN ---
Behaviors/Verbalizations/Mental Status: []Client alert and oriented, neatly dressed and groomed. Eye contact good. Motor activity appropriate. Speech within normal limits, but off topic at times. Affect congruent, mood euthymic. Thoughts linear, logical, no signs of hallucinations or delusions Client Response/Progress/Benefit: []Client responded well to session, participating in session, but off topic at times. Client connected with the group topic of crisis and did well to define crisis. Client identified examples of potential crisis to include loss of a loved one, relationship problems, and disasters. Client shared it is hard to cope with crisis because some crises are out of our control. Client agreed that anything could become a crisis depending on how many stressors a person has. Connected with discussion on how coping with external crisis by using unhealthy coping skills could lead to personal crisis. Group identified unhealthy coping skills to include; using substances, sleep, pushing away supports, and avoiding responsibilities. Group identified warning signs for crisis which included; negative thoughts, crying uncontrollably, numbing, lack of motivation, and increased agitation. Client completed the personal warning signs worksheet and identified crisis warning signs to include; negative thinking, feeling disconnected, and racing thoughts. Benefited from group by increasing awareness of crisis and personal warning signs. Progress noted as shown by client?s report of no suicide ideations since admission. Will continue IOP tx to combat negative thoughts that reinforce depression. Narrative Note: []
--- NOTE | 2019-05-21 11:10 | PCM.BH.PN_ITS ---
Progress Note Progress Note: History of Present Illness/Interim History: [] The patient is a [age]-year-old male who is seen in follow-up at the [facility] program after being admitted for depression. Since I saw him about 3 weeks ago the patient says he is continuing to improve. He feels the IOP program is going well for him. He had an upper respiratory infection in the past week and is recovering from this now. He missed some days last week secondary to illness but is feeling better now. He describes his mood as okay overall. He says that he feels he is making progress in trying to accept his work situation. He still feels that he has to compensate for the inadequacies of many of the other workers at his job. He talks about the younger workers having poor work ethic. He really enjoys his job and feels he is doing well now. 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 Discussion was had about the fact that add cannot control other workers and the best way to influence them might be to just show them by example a good work ethic. He understands he cannot control other people. He states that things at home are good and his and he are doing well in their relationship. He is enjoying still reading and denies anhedonia. His energy and concentration are normal now. His sleep has improved to 7 to 8 hours a night still. He feels he is learning skills in the program to help him manage his issues. Current Psychiatric Medications: [] Wellbutrin XL 150 mg p.o. every morning Mental Status Examination: [] Patient is a 58-year-old male who appears normal for stated age and is casually dressed and groomed with good hygiene. He has no psychomotor agitation or retardation. He is cooperative and pleasant during the interview. He has good eye contact and his speech is normal rate and rhythm with no pressure. Mood is euthymic. Affect is full and normal. His thought processes goal-directed and organized and less overinclusive than at the prior visits. Thought content: No evidence of suicidal or homicidal ideation. No evidence of hallucinations or delusions. He still tends to talk mostly about work. Reality testing is intact. Impulsivity: Low to moderate. Judgment: Intact. Insight: Some present. 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 The risks, options, possible complications and side effects of the medication were discussed with the patient and he understands and accepts these. No changes were made to the dose of the medication. He felt safe during the interview and if at any time he does not feel safe he will let us know or go to the emergency room. The patient does not need any refills on his Wellbutrin so no prescriptions were given. I will follow-up with the patient as needed.
--- NOTE | 2019-05-21 11:10 | BH.SGPN.GN ---
Behaviors/Verbalizations/Mental Status: []Pt eye contact good, casually dressed, motor activity appropriate, speech normal rate and tone, mood euthymic, congruent affect, thoughts linear and intact, no evidence of delusions or hallucinations. Client Response/Progress/Benefit: []Client responded well to session as evidenced by client listening attentively to others and providing input throughout session. Client identified his warning signs for crisis and gained further awareness of earliest warning signs. Client appeared to connect that awareness of these warning signs can prevent further crisis and help client utilize healthy coping skills to break the cycle. Client created a crisis action plan to help client better manage warning signs for crisis. Client?s plan included: challenge rationality of thoughts, daily affirmations, identify daily mental health wins, grounding tools, and communication with supports. Client selected tangible items for crisis survival kit that will help his remember these crisis interventions. Client appeared to benefit from creating a crisis action plan and increasing self-awareness. Client to continue IOP to prevent decompensation, continue use of healthy coping and challenge negative thoughts. Narrative Note: []
--- NOTE | 2019-05-21 13:45 | BH.MDN_ITS ---
Multi-Disciplinary Note - Note 60-min Individual Time Started:: 12:05 Date: 05/21/19 Purpose of session/treatment goals addressed:: Purpose of session was to assess pt's current symptoms, stressors, and treatment goal progress. Other topics included: locus of control and strategies for challenging thought distortions. Eye Contact:: Good Motor Activity:: Appropriate Appearance:: Casual Speech:: Appropriate Mood:: Euthymic Affect:: Full Thoughts:: Linear, Logical, No evidence of hallucinations/delusions noted Staff Interventions:: Therapist asked open ended and furthering questions to elicit information regarding pt's current symptoms, stressors, and treatment progress. Provided support by using active listening and empathic responses in order to validate emotions. Therapist provided pt with a self-assessment on locus of control and aided pt in processing results and the impact pt locus of control may have on and relationships with others. Discussed strategies for improving emotion regulation and challenging use of personalization. Client Response:: Pt receptive of session and engaged throughout. Stated he is more positive today as he is finally beginning to feel better after having the flu for the past week. Discussed that he had struggled with feeling anxious and agitated about not being able to accomplish responsibilities around the house while sick and is relieved to be able to begin focusing on household tasks again. Reviewed discussion on what is in/out of pt control started during prior session and provided pt with a Locus of Control self-assessment. Pt and therapist discussed pt?s overall al scores which indicated he has a balance of internal and external locus, though leans more towards the internal mindset. Discussed characteristics of internal locus and potential benefits and barriers presented in having an internal locus of control. Pt identified that it helps him to identify what he is able to do to respond to or problem-solve in a situation. Able to additionally see how this could lead to personalization and expressed that he has struggled not to personalize at times when receiving criticism or his ideas are dismissed by others. Provided specific example of how personalization led to pt most recent hospitalization. Reports feeling he is not struggling as much in this area since beginning IOP tx. Shared he feels more capable of challenging himself not to focus on things that are not his responsibility or may be outside his control which has been helpful. Additionally, noted being moved to the ?[employer]? dept. which is more independent work and allows pt to focus only on his own work rather than that of others. 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 Went on to indicate believing this is due to struggling with ?patience and tolerance? and would like to focus on these areas for remainder of treatment. Reviewed emotion regulation skills such as STOPP skill and deep breathing before responding to others. Pt discussed he is trying to be less abrasive in approaching others with concerns. Risks/Concerns:: Pt denies any active SI, plan, or intent as of this date 05/21/19. Progress Toward Goals/Plan:: Pt progress continues to be variable. Pt reports doing well on this date, but progress continues to be primarily focused on other?s responses and interactions with him, often resulting in increased personalization when feeling rejected, ignored, or dismissed by others. Reports increased ability to challenge personalization and better focus on what is n his control rather than try to control or fix other?s behaviors. 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 Pt has shown progress with increased awareness of how emotion dysregulation and negative thoughts impact mood. Pt engaging in taking time between trigger and response to improve ability to regulate and more effectively approach conflict. Pt is recommended to continue IOP level of care to increase consistent application of healthy skills, improve emotional regulation and prevent decompensation. Time Stopped:: 12:55
--- NOTE | 2019-05-22 09:05 | BH.SGPN.GN ---
Behaviors/Verbalizations/Mental Status: [] Eye contact is good. Motor activity is appropriate. Appearance is casual. Speech is Appropriate. Mood is euthymic. Affect is full. Thoughts are linear and logical. No evidence of psychosis. Reviewed daily check in sheet and no reports of suicidal ideations or intent. Client Response/Progress/Benefit: [] Active participant in group discussion on impact of the environmental and our mood. Emotion for today in content. No significant distress noted in daily symptom tracker. Shared with the group some superficial accomplishments. Did discuss how his perceived lack of support led to his psych hospitalization. Talked about the importance of support in his mental health and some red flags noting decompensation that he is more aware of. Progress noted. Benefited from group support, encouragement, and feedback. Will continue in IOP to maintain gains and prevent decompensation. Narrative Note: []
--- NOTE | 2019-05-22 10:10 | BH.SGPN.GN ---
Behaviors/Verbalizations/Mental Status: []Eye contact is good. Motor activity is appropriate. Appearance is casual. Speech is Appropriate. Mood is euthymic. Affect is congruent. Thoughts are linear and logical. No evidence of psychosis. Client Response/Progress/Benefit: []Pt engaged participant AEB pt providing input to discussion, appeared to connect to peers comments and listened attentively to peers. Assisted group with identifying behaviors that can negatively impact communication. Pt worked with the group to identify barriers to maintaining healthy communication. Pt stated sometimes his will say things in her head and believe she told pt what she was thinking but in reality she didn't communicate it. Pt reported this will result in increased conflict because he gets confused and frustrated. Pt receptive of and appeared to benefit from psychoeducation portion discussing different styles of communication. Pt to continue in IOP tx to continue to increase use of healthy coping and prevent decompensation. Narrative Note: []
--- NOTE | 2019-05-22 11:14 | BH.SGPN.GN ---
Behaviors/Verbalizations/Mental Status: []Client alert and oriented, casually dressed and groomed. Eye contact good. Motor activity appropriate. Speech within normal limits. Affect congruent, mood euthymic. Thoughts linear, logical, no signs of hallucinations or delusions. Client Response/Progress/Benefit: []Client active participant AEB by providing input and examples, as well as supportive feedback throughout. Client attentive during discussion on the various communication styles, their characteristics, and the pros/cons of each. Worked with participants to identify impact of current communication style on mental health and relationships. Shared that current style has impacted how others respond to him caused tension in relationships within the workplace. Client aided the group in identifying strategies for improving communication in daily life. Client identified communication goal which is to practice using ?T.H.I.N.K.? acronym. Shared struggling to remain kind when communicating concerns with others. Client seemed to benefit from increased insight into how his communication style impacts mental health and identifying strategies for increasing effective communication skills. Progress noted as client improved mood and increased ability to make connections with material discussed. Will continue IOP tx to prevent decompensation and to promote mood stability. Narrative Note: []
--- NOTE | 2019-05-23 09:05 | BH.SGPN.GN ---
Behaviors/Verbalizations/Mental Status: []Eye contact is good. Motor activity is appropriate. Appearance is casual. Speech is Appropriate. Mood is euthymic. Affect is congruent. Thoughts are linear and logical. No evidence of psychosis. Client Response/Progress/Benefit: []Pt responded well to session AEB pt contributing thoughts openly to group and listened attentively to peers. Pt identified mental health positive was staying calm when in traffic yesterday.Pt stated he was able to maintain calmness by prepping self prior to trip that there would be a lot of traffic when driving back from [place]. Pt stated stated current stressor as having to do laundry today. Pt reported he will try to make this task more enjoyable by doing the laundry as he watches his tv shows. Pt seemed to benefit from support from peers. Pt to continue IOP to increase healthy coping and prevent decompensation. Narrative Note: []
--- NOTE | 2019-05-23 10:10 | BH.SGPN.GN ---
Behaviors/Verbalizations/Mental Status: []Client alert and oriented, casually dressed and groomed. Eye contact good. Motor activity appropriate. Speech within normal limits. Affect congruent, mood euthymic. Thoughts linear, logical, no signs of hallucinations or delusions. Client Response/Progress/Benefit: []Client responded well to session, attentive and engaged throughout. Participated in the group discussion to define and identify differences between internal and external conflict. Client reported ?without conflict it becomes harder to have personal growth? Client shared that fear of the outcome can make people not confront conflicts. Shared that shutting down can also impact ability to resolve conflict and provided personal example. Group reported the benefits of addressing conflict included personal growth, increased trust, and preventing further consequences. Group identified and discussed consequences of not addressing conflict in healthy ways which included: decreased trust, damaged relationships, increased mental health symptoms, and not getting one?s needs met. Benefited as client was able to identify and define conflict as well as increase awareness of how conflict style impacts mental health. Progress noted as shown by client?s report of improved mood and increased emotion regulation skill application outside tx environment. Will continue IOP tx to promote insight and application of healthy skills, reduce mental health sx severity, and further improve daily functioning. Narrative Note: []
--- NOTE | 2019-05-23 11:13 | BH.SGPN.GN ---
Behaviors/Verbalizations/Mental Status: []Client alert and oriented, casually dressed and groomed. Eye contact good. Motor activity appropriate. Speech within normal limits, but interrupting at times. Affect congruent, mood euthymic. Thoughts linear, logical, no signs of hallucinations or delusions. Client Response/Progress/Benefit: []Client responded well to session, providing to discussion and activity. However, client was interrupting and engaged in side conversations at times. Contributed to ongoing discussion of the different conflict resolution styles, drawbacks, and appropriate times of use. Client stated he is mostly competing when faced with conflict, but he wants to work on being more collaborating. Client reported this type of conflict resolution style negatively impacts his mental health because client becomes ?only focused on winning as the only goal.? Client worked cooperatively with group to identify healthy strategies to manage conflict. Client stated he will work on improving his conflict resolution style by practicing respecting the ideas of others and finding common ground. Client appeared to benefit from increasing awareness of his personal conflict resolution style and from learning ways to increase healthy conflict resolution. Progress noted in client?s report of less negative thinking. However, client often presents well in group and has a history of minimizing his symptoms. Will continue IOP tx to promote mood stability and improve emotional regulation. Narrative Note: []
== END 2019-05-23 23:59 ==
LOC: BHIOP 09:00
PROVIDERS: Family Provider Internal Medicine; PCP Internal Medicine; Referring Provider Psychiatry & Neurology Psychiatry; Visit Provider Psychiatry & Neurology Psychiatry
DX: F33.2 Major depressive disorder, recurrent severe without psychotic features (principal); R45.851 Suicidal ideations; I10 Essential (primary) hypertension; K21.9 Gastro-esophageal reflux disease without esophagitis; E78.5 Hyperlipidemia, unspecified; E88.81 Metabolic syndrome and other insulin resistance; F12.90 Cannabis use, unspecified, uncomplicated; Z91.5 Personal history of self-harm; Z79.899 Other long term (current) drug therapy; Z87.891 Personal history of nicotine dependence
CPT/HCPCS: H0035; 90834; 90837; 90853

== ENCOUNTER 2019-05-28 09:00 | Outpatient (RCR) | payer OTHER, SELFPAY ==
[2019-05-01 14:45] VITALS: BMI 26.9
[2019-05-24 01:06] VITALS: BP 136/70; PULSE 76; RESP 18
--- NOTE | 2019-05-28 09:05 | BH.SGPN.GN ---
Behaviors/Verbalizations/Mental Status: [] Eye contact is good. Motor activity is appropriate. Appearance is casual. Speech is Appropriate. Mood is euthymic. Affect is full. Thoughts are linear and logical. No evidence of psychosis. Reviewed daily check in sheet and no reports of suicidal ideations or intent. Client Response/Progress/Benefit: [] Pt was an active participant in group session. Provided appropriate feedback and encouragement to peers however limited insight in reasons he made need to make changes. Brought up stressors at work and continues to be focused and ruminate on what others are not doing. Unable to process this or let it go even when outside work. Insight into how this internalization impacts his emotions and ultimately led to his psych admission however when asked for strategies continues to express that others need to change. Group challenged him. Some progress noted. Will continue in IOP to prevent decompensation, increase healthy coping, and transition back to full-time work. Narrative Note: []
--- NOTE | 2019-05-28 10:07 | BH.SGPN.GN ---
Behaviors/Verbalizations/Mental Status: []Client alert and oriented, casually dressed and groomed. Eye contact good. Motor activity appropriate. Speech within normal limits. Affect congruent, mood euthymic. Thoughts linear, logical, no signs of hallucinations or delusions. Client Response/Progress/Benefit: []Pt receptive to session, actively participating throughout. Provided input as the group brainstormed the positive and negative aspects of stress on physical and mental health. Group noted that distress can reduce productivity, lead to avoidance, and impact emotion regulation. Shared benefits of stress as: increased motivation, sense of accomplishment, improved self-esteem, and increased focus. Client?s current stressors included; work, other people, his relationship with his , and his job. Client reports belief that his stress jar is not as full as it has been in the past and expressed that this is due to improved ability to manage stressors rather than avoid them. Client stated when stress is too high client will shut down or become sarcastic and mean. Appeared to benefit from gaining awareness of own current stressors and learning about the impact stress has on overall wellbeing. Progress noted as shown by client?s self-report of improved coping skill application, though continues to struggle with externalization. Recommend continued IOP tx to promote use of healthy coping skills and to further reduce depressive symptoms. Narrative Note: []
--- NOTE | 2019-05-28 11:15 | BH.SGPN.GN ---
Behaviors/Verbalizations/Mental Status: []Client alert and oriented, casually dressed and groomed. Eye contact good. Motor activity appropriate. Speech within normal limits. Affect congruent, mood euthymic. Thoughts linear, logical, no signs of hallucinations or delusions. Client Response/Progress/Benefit: []Pt engaged participant in session as evidenced by pt listening attentively to others and providing input throughout session. Pt worked with the group to complete the challenge activity. Pt identified communicating, adapting to the stressors, and working as a team as strategies that helped the group be successful. Pt actively listening during discussion about the 4 A's of managing stress. Identified he will focus on accepting what he cannot control. Pt seemed to benefit from increased awareness of the impact of stress on mental health and increasing repertoire of stress management strategies. Pt to continue in IOP to prevent decompensation, continue use of healthy coping skills, and challenge distorted thoughts. Narrative Note: []
--- NOTE | 2019-05-29 09:06 | BH.SGPN.GN ---
Behaviors/Verbalizations/Mental Status: []Eye contact is good. Motor activity is appropriate. Appearance is casual. Speech is WNL. Mood is euthymic. Affect is congruent. Thoughts are linear and logical. No evidence of psychosis. Reviewed daily check in sheet and no reports of suicidal ideations or intent Client Response/Progress/Benefit: [] Pt responded well to session, actively engaged throughout discussion, willing to process with group. Reports emotion for the day as ?content? and indicated that this is due to continuing to feel he is more ?stable?. Pt identified current mental health wins as being able to continue to try to challenge his perspective in the workplace and reduce his focus on what other?s are not doing correct. Shared this has helped some with managing him emotions in the workplace. Continued to struggle with making remarks focused on externalizing control regarding workplace stressors throughout check-in however. Was receptive and appeared to benefic from constructive feedback provided by the group. Additional win recognized as improved ability to challenge personalization via saying ?this is happening? vs. ?this is happening to me?. Progress noted in pt self-report of improved mood and increased skill application. Recommended continued IOP tx to maintain gains, promote ongoing tx goal progress and complete discharge planning. Narrative Note: []
--- NOTE | 2019-05-29 10:15 | BH.SGPN.GN ---
Behaviors/Verbalizations/Mental Status: []Client alert and oriented, casually dressed and groomed. Eye contact good. Motor activity appropriate. Speech within normal limits. Affect congruent to topic being discussed, mood euthymic. Thoughts linear, logical, no signs of hallucinations or delusions. Client Response/Progress/Benefit: []Client was an active participant in group discussion and activity. Attentive during psychoeducation and commenting on the quote. Client stated sometimes we confuse complacency with comfort so we stay stuck because it's too painful to move on. Worked with the group to identify barriers to change, which included: worry about what others think, comfort, fear, thinking it's not the right time, and not having resources to change. Client participated along with group in activity where they identified and discussed the emotions related to change. Client was attentive during psychoeducation on the change process. Client stated feeling torn can make one reluctant to change, but also feel excited to embrace something that might be better. Benefited from increased awareness and understating of emotions, benefits, and barriers related to change. Will continue IOP tx to prevent decompensation, maintain gains, and continue use of healthy coping skills. Narrative Note: []
--- NOTE | 2019-05-29 11:16 | BH.SGPN.GN ---
Behaviors/Verbalizations/Mental Status: []Client alert and oriented, casually dressed. Eye contact good. Motor activity appropriate. Speech within normal limits. Affect congruent, mood euthymic. Thoughts linear, logical, no signs of hallucinations or delusions. Client Response/Progress/Benefit: []Client was an active participant AEB client contributing to discussion and engaging in group activity. Client participated in the activity and processed emotions and barriers associated with making change. Client reported dealing with restrictions, not knowing all the information, and emotions impact how a person handles change. Client engaged during discussion on weighing the pros and cons associated with change and benefited from learning to do so through use of decisional balance sheet. Identified he wants to not internalize as the change he wants to make to improve his mental health. Client able to identify the pros of not internalizing which included; increasing acceptance of himself and understanding of others? perspective. Client also recognizes there are consequences of not internalizing which included poorer mental health and decreased willingness to change. Appeared to benefit from gaining awareness of the pros and cons associated with internalizing. Recommended continued IOP level of care for one more day as client can benefit from reinforcing healthy coping skills and establishing aftercare. Narrative Note: []
--- NOTE | 2019-05-29 15:24 | BH.MDN_ITS ---
Multi-Disciplinary Note - Note 30-min Individual Time Started:: 10:49 Date: 05/29/19 Purpose of session/treatment goals addressed:: Purpose of this session was to assess current symptoms and review progress in IOP via DSM-5 scores and pt report. Addressed treatment plan goals 1 and 2. Eye Contact:: Good Motor Activity:: Appropriate Appearance:: Casual Speech:: Appropriate Mood:: Euthymic Affect:: Full Thoughts:: Linear, Logical, No evidence of hallucinations/delusions noted Staff Interventions:: Asked open ended and furthering questions to assess current sx, stressors and tx goal progress. Provided pt with DSM-5 cross-cutting analysis and reviewed areas of progress with pt. Utilized TN techniques to elicit changes behaviors and discuss strategies for maintaining gains moving forward. Provided resources for outpatient mental health providers and psychiatry services. Client Response:: Pt reports feeling more ?balanced? and ?stable? on this date. He indicates that for the past two weeks he has really felt as though he has ?returned to my baseline? and reports a decrease in depressive symptoms. Discussed strategies he has learned in IOP tx that have aided in improving his ability to regulate his emotions in the workplace and reduce use of personalization. 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 Additionally shared reminding himself to challenge his perspective by saying ?this is happening? not ?this is happening to me?. Shared feeling he is ready to discharge from IOP tx given amount of progress he has made in the last 4 weeks. Discussed areas he would like to continue to focus on in individual counseling which includes increasing his ability to be alright with not being in control, emotion regulation skills, and challenging distortions. Reports plans to follow- up with Blair Fernandez a private practitioner in the [place] area providing outpatient counseling. Given progress in pt ability to remain regulated in the workplace and reports of improved sx management, therapist in agreement with pt discharging from IOP tx tomorrow. Risks/Concerns:: none noted. Denies active SI, plan or intent as of this date 05/29/19. Progress Toward Goals/Plan:: Progress noted since entering IOP AEB pt report and reduction on DSM scores. Pt reports improved mood, increased utilization of supports, improved ability to challenge negative or distorted thoughts. Continues to struggle with externalization and use of personalization. Pt is to discharge from IOP tx tomorrow. Plans to follow-up with PCP for ongoing medication management and was given local psychiatry resources should he want to establish regular psychiatry. Is to schedule individual outpatient counseling with Blair Fernandez a private practitioner in the [facility].
--- NOTE | 2019-06-04 09:10 | BH.SGPN.GN ---
Behaviors/Verbalizations/Mental Status: [] Eye contact is good. Motor activity is appropriate. Appearance is casual. Speech is Appropriate. Mood is euthymic. Affect is full. Thoughts are linear and logical. No evidence of psychosis. Reviewed daily check in sheet and no reports of suicidal ideations or intent. Client Response/Progress/Benefit: [] Pt was an active participant in group. Emotion for today is excited. Daily symptom tracker notes no concerns with emotions today. Shared that today is his last day in IOP. Pointed out that he has been receiving more positive feedback at work which he attributes to some internal changes that he has made and improvements in communication. Discussed some groups and discussions which have helped in while in IOP. Had to be re-directed at times as he was off-topic and more focused on career than recovery. Progress noted. Will be discharged today. Narrative Note: []
--- NOTE | 2019-06-04 10:10 | BH.SGPN.GN ---
Addendum entered and electronically signed by Judi Riggins LSW 06/05/19 08:19: Pt was an active participant in discussion and activity as evidenced by pt providing input throughout, listening to others, and asking questions as needed. Group worked together to come up with common negative forces in their lives which can hold them back from growth. Negative forces included: mental illness, negative thoughts, other people?s opinions and behaviors, not managing emotions, and poor choices. Group then worked together to identify common positive forces which help us grow. Theses included: Healthy coping skills, positive support, self-care, positive self-talk and opposite action, and weighing the pros/cons of choices. Pt reported he believes personal growth comes from how we respond to a stimuli. Pt was attentive during psychoeducation on the importance of utilizing many aspects of positive forces to help one grow. Benefited from group with increased insight and awareness on the impact of negative and positive forces on mental wellness. Progress limited due to difficulties in consistent skill application, and difficulties in regulating emotions. Recommended continued tx in the outpatient setting as this is pt last day, additional tx to reduce mental health sx severity, increase positive change behaviors, and prevent decompensation. Original Note: Behaviors/Verbalizations/Mental Status: []Client alert and oriented, casually dressed and groomed. Eye contact good. Motor activity appropriate. Speech within normal limits. Affect congruent, mood euthymic. Thoughts linear, logical, no signs of hallucinations or delusions. Client Response/Progress/Benefit: [] Narrative Note: []
--- NOTE | 2019-06-04 11:20 | BH.SGPN.GN ---
Behaviors/Verbalizations/Mental Status: []Client alert and oriented, casually dressed and groomed. Eye contact good. Motor activity appropriate. Speech within normal limits. Affect full, mood euthymic. Thoughts linear, logical, no signs of hallucinations or delusions. Client Response/Progress/Benefit: []Client provided input throughout and listened attentively to peers. Client completed worksheet identifying his positive and negative forces in life. Client identified positive forces that aid in progressing toward mental health goals included: family, focusing on goals, self-awareness, and fear of failure. Client indicated negative forces that prevent progress include: fear of success, self-doubt, negative attitude, and lack of motivation. Client stated his positive forces outweigh negative forces, but he will focus on continuing to challenge his negative attitude. Client seemed to benefit from increased awareness of personal positive and negative forces in life and impact they have on mental health and wellness. Client has made progress since starting IOP and will discharge from IOP today. Narrative Note: []
--- NOTE | 2019-06-04 12:51 | BH.AFTERPLAN ---
Aftercare Plan - Demographics Treatment End Date:: 06/04/19 Psychiatrist:: Susana Pagan Psychiatrist Office #:: [phone] [facility]/IOP Therapist:: Judi Riggins Therapist Phone #:: [phone] - Medications Home Medications: Home Medications simvastatin 20 mg tablet 20 mg PO QPM #90 tab 10/02/18 hydrochlorothiazide 25 mg tablet 25 mg PO QDAY #90 tab 01/10/19 metaxalone 800 mg tablet 800 mg PO QDAY PRN #90 tab 01/23/19 bupropion HCl 150 mg 24 hr tablet, extended release 150 mg PO QAM 04/17/19 Ibuprofen [Motrin] 800 mg PO Q8H PRN PRN 04/30/19 Omeprazole 20 mg PO QDAY PRN 04/30/19 amlodipine 10 mg tablet 5 mg PO QDAY tab 05/01/19 losartan 100 mg tablet 100 mg PO QDAY tab 05/01/19 potassium chloride 10 mEq tablet,extended release 20 meq PO DAILY #180 tab 05/30/19 - Plan Details Progress/Aftercare Plan Details:: Pt has made progress since starting IOP and has been able to more successfully manage stress at work per pt self-report. According to pt's self-report as well as scores on DSM 5 cross-cutting measure pt has made progress in reducing sx of irritability, anxiety, and depression. Pt has seen an overall 100% symptom reduction compared to intake scores. Given dramatic decrease in pt scores, there is some concern of minimization and limited awareness of mental health sx which could potentially impact ongoing progress post-discharge from IOP tx. Pt reports no longer experiencing any mental healthy related sx and feels he has ?returned to my baseline?. With some further reflection, pt able to recognize continued difficulties in managing emotions during times of high stress. Pt reports a decrease in distorted thoughts, increased awareness warning signs, increase application of healthy coping behaviors, improved willingness to utilize his supports, and improved mood regulation as well. Strategies for Success:: 1. Opposite Action!!! ? do what will help you, even when your brain is saying don?t do it, even when it feels uncomfortable. 2. Setting and following through with boundaries with yourself and others ? remember not to take on a role that is not your responsibility and may be causing you unnecessary extra stress 3. Challenge negative and distorted thought patterns. 4. Daily and weekly SMART goal setting. - Remember it?s about gradually eating that elephant, you don?t need to take it all at once. 2% is better than 0%. 5. Continue to make time for yourself! Self-care is varela to maintaining progress and staying level! This includes sometimes doing those hard things. Remind yourself you deserve to take time to care for you! 6. Small steps to physical, mental, and emotional wellness. Check-in with yourself regularly in order to identify what may be stressing you out and allow yourself to take small breaks if you find yourself getting overwhelmed. - Appointments Appointments/Referrals to Other Services:: Pt's plan is to follow up with ith PCP for ongoing medication management and was given local psychiatry resources should he want to establish regular psychiatry. Is to schedule individual outpatient counseling with Blair Fernandez a private practitioner in the [facility].
--- NOTE | 2019-06-04 15:59 | BH.DS ---
Discharge Summary - Demographics Date of Admission:: 04/30/19 Discharge Date: 06/04/19 Presenting Problems at Admission:: Patient is a 58-year-old male who presents to the [facility] program after having a psychiatric admission at [facility] for depression with suicidal ideation. He was admitted to [facility] from April 09 to April 14, 2019. The patient works at [employer] in [place] for the past 15 months and reports this is a very stressful job for him, often having increased conflict with co-workers. The day of his psych admission the patient verbalized suicidal thoughts by stating that he wanted to go to the [employer] and buy rat poison and he was sent to the emergency room. Patient had been demoted at work twice prior to his suicidal ideation at work. His mood had been decreased for the past few weeks prior to his admission due to the stress at work according to the patient. He feels he was unjustly demoted at work. The patient says that a friend also committed suicide shortly before he was admitted to the hospital and this added to his stress at the time. Reports difficulties in setting boundaries and managing emotions during times of increased conflict. Denies Active SI, plan, or intent. At time of admission, Pt was endorsing symptoms of depression, worthlessness, and passive thoughts of . Additionally, indicated ruminating thoughts, irritability, poor emotion regulation, and mood swings. Pt?s sx were impacting ability to function at baseline, as well as effecting personal, social, and occupational areas. Discharge Diagnoses:: Major depressive disorder recurrent severe without psychosis Reason for Discharge:: Pt has made significant treatment progress since starting IOP and no longer meets criteria for this level of care. - Treatment Progress During Treatment & Response: Pt has made progress since starting IOP and has been able to more successfully manage stress at work per pt self-report. According to pt's self-report as well as scores on DSM 5 cross-cutting measure pt has made progress in reducing sx of irritability, anxiety, and depression. Pt has seen an overall 100% symptom reduction compared to intake scores. Given dramatic decrease in pt scores, there is some concern of minimization and limited awareness of mental health sx which could potentially impact ongoing progress post-discharge from IOP tx. Pt reports no longer experiencing any mental healthy related sx and feels he has ?returned to my baseline?. With some further reflection, pt able to recognize continued difficulties in managing emotions during times of high stress. Pt reports a decrease in distorted thoughts, increased awareness warning signs, increase application of healthy coping behaviors, improved willingness to utilize his supports, and improved mood regulation as well. Pt's plan is to follow up with [facility] PCP for ongoing medication management and was given local psychiatry resources should he want to establish regular psychiatry. Is to schedule individual outpatient counseling with Blair jacobs private practitioner in the [facility]. Issues Still to be Addressed:: Pt could benefit from continued reinforcement of healthy coping skills, challenging negative thoughts, improving insight regarding use of externalization, ongoing focus on distress tolerance and emotion regulation skills, and effective communication skills. Discharge Recommendations/Instructions:: Pt's plan is to follow up with [facility] PCP for ongoing medication management and was given local psychiatry resources should he want to establish regular psychiatry. Is to schedule individual outpatient counseling with Blair jacobs private practitioner in the [facility]. Discharge Handout: Complete Discharge Handout with client on aftercare options and continuity of care.
== END 2019-06-04 14:00 | disposition home or self-care (01) ==
LOC: BHIOP 09:00
PROVIDERS: Family Provider Internal Medicine; PCP Internal Medicine; Referring Provider Psychiatry & Neurology Psychiatry; Visit Provider Psychiatry & Neurology Psychiatry
DX: F33.2 Major depressive disorder, recurrent severe without psychotic features (principal)
CPT/HCPCS: H0035; 90832; 90853

== ENCOUNTER → 2019-06-26 | Outpatient (CLI) | payer OTHER, SELFPAY ==
[2019-05-01 14:45] VITALS: BMI 26.9
[2019-06-26 12:41] LABS: Absolute Lymphocyte Count 1.62 X10^3/uL (0.83-4.51); Absolute Neutrophil Count 3.1 X10^3/uL (2.0-7.7); Basophil# 0.03 X10^3/uL; Basophil% 0.6 % (0-1); Eosinophil# 0.24 X10^3/uL; Eosinophils% 4.4 % (0-5); Hematocrit 43.5 % (40-54); Hemoglobin 14.4 g/dL (13.0-16.5); Lymphocyte # 1.62 X10^3/ul (4.0); Lymphocyte % 29.9 % (19-41); Mean Corp Hgb Conc 33.1 g/dL (32-36); Mean Corpuscular Hgb 29.2 pg (27.0-32.0); Mean Corpuscular Volume 88.2 fL (80-94); Mean Platelet Vol. 10.7 fl (6.2-12.0); Monocyte# 0.44 X10^3/uL; Monocyte% 8.1 % (0-10); NRBC Flagged by Analyzer 0 % (0-5); Neutrophil # 3.07 X10^3/uL (2.7-7.7); Neutrophil % 56.8 % (47-70); Platelet Count 221 K/mm3 (150-450); RBC Distribution Width CV 12.3 % (11.6-14.6); RBC Distribution Width SD 39.8 fl (35.1-43.9); Red Blood Count 4.93 M/mm3 (4.6-6.2); White Blood Count 5.4 K/mm3 (4.4-11.0)
[2019-06-26 12:56] LABS: ALB/GLOB Ratio 1.2 RATIO (0.9-2.4); AST(SGOT) 18 U/L (15-37); Alanine Aminotransfer ALT/SGPT 34 U/L (16-61); Albumin, Serum 3.6 g/dL (3.2-5.0); Alkaline Phosphatase 74 U/L (45-117); Anion Gap 0 (5-15); BUN 23 mg/dL (7-18); BUN/Creat Ratio 29.3 RATIO (10-20); Calcium,Total 8.9 mg/dL (8.5-10.1); Chloride 108 mmol/L (98-107); Cholesterol 186 mg/dL (200); Creatinine, Serum 0.78 mg/dL (0.70-1.30); EST Glomerular Filtration Rate 107 mL/min (>60); Est Glom Filt Rate - Afr Amer 130 mL/min (>60); Globulin 3.1 g/dL (2.2-4.2); Glucose 92 mg/dL (74-106); High Density Lipoprotein 43 mg/dL; Potassium 3.9 mmol/L (3.5-5.1); Protein, Total 6.7 g/dL (6.4-8.2); Sodium Level 142 mmol/L (136-145); Triglycerides 70 mg/dL; Very Low Density Lipoprotein 14 mg/dL (5-40)
== END | disposition home or self-care (01) ==
LOC: BIMLAB 08:11
PROVIDERS: PCP Internal Medicine; Referring Provider Internal Medicine; Visit Provider Internal Medicine
DX: K21.9 Gastro-esophageal reflux disease without esophagitis (principal); E78.5 Hyperlipidemia, unspecified; I10 Essential (primary) hypertension
CPT/HCPCS: 36415; 80053; 80061; 85025

== ENCOUNTER → 2019-12-17 17:41 | Outpatient (CLI) | payer OTHER, SELFPAY ==
[2019-12-17 15:03] VITALS: BMI 26.9
== END ==
PROVIDERS: PCP Internal Medicine; Referring Provider Internal Medicine; Visit Provider Internal Medicine
DX: Z20.828 Contact with and (suspected) exposure to other viral communicable diseases (principal)
CPT/HCPCS: 87635; U0003

== ENCOUNTER → 2020-04-22 09:08 | Outpatient (CLI) | payer OTHER, SELFPAY ==
[2020-02-13 15:07] VITALS: BMI 28.3
--- NOTE | 2020-04-22 09:24 | EKG12_ITS ---
Test Reason : PREOP Blood Pressure : / mmHG Vent. Rate : 071 BPM Atrial Rate : 071 BPM P-R Int : 198 ms QRS Dur : 106 ms QT Int : 396 ms P-R-T Axes : 053 -46 016 degrees QTc Int : 430 ms Normal sinus rhythm Left axis deviation Abnormal ECG Confirmed by VICTOR HUGO NAPOLES, SERENA ([id number]), senior technical editor RASHAD HANDY ([id number]) on 04/26/2020 9:34:19 AM Referred By: Kevin Spann Confirmed By:AIDE GAY MD
[2020-04-22 09:28] LABS: Hematocrit 44.6 % (40-54); Hemoglobin 14.9 g/dL (13.0-16.5); Mean Corp Hgb Conc 33.4 g/dL (32-36); Mean Corpuscular Hgb 29.6 pg (27.0-32.0); Mean Corpuscular Volume 88.5 fL (80-94); Mean Platelet Vol. 9.7 fl (6.2-12.0); Platelet Count 205 K/mm3 (150-450); RBC Distribution Width CV 11.9 % (11.6-14.6); RBC Distribution Width SD 38.2 fl (35.1-43.9); Red Blood Count 5.04 M/mm3 (4.6-6.2)
[2020-04-22 10:05] LABS: Anion Gap 1 (5-15); BUN 19 mg/dL (7-18); BUN/Creat Ratio 24.9 RATIO (10-20); Calcium,Total 8.9 mg/dL (8.5-10.1); Chloride 109 mmol/L (98-107); Creatinine, Serum 0.76 mg/dL (0.70-1.30); EST Glomerular Filtration Rate 111 mL/min (>60); Est Glom Filt Rate - Afr Amer 134 mL/min (>60); Glucose 98 mg/dL (74-106); Potassium 3.7 mmol/L (3.5-5.1); Sodium Level 144 mmol/L (136-145)
== END ==
PROVIDERS: PCP Internal Medicine; Referring Provider Surgery; Visit Provider Surgery
DX: Z01.812 Encounter for preprocedural laboratory examination (principal)
CPT/HCPCS: 36415; 80048; 85027; 87635; 93005; C9803; U0003

== ENCOUNTER 2020-07-06 07:49 | Outpatient (RCR) | payer OTHER, SELFPAY ==
[2020-05-07 08:08] VITALS: BMI 28.3
[2020-07-06] MEDS: COVID-19 VACC, MRNA(PFIZER)/PF 30 MCG/0.3 ML SYRINGE IM (18:35)
[2020-07-27] MEDS: COVID-19 VACC, MRNA(PFIZER)/PF 30 MCG/0.3 ML SYRINGE IM (18:20)
== END 2020-07-06 23:59 ==
LOC: IMMUN 07:49
PROVIDERS: PCP Internal Medicine; Visit Provider Family Medicine
DX: Z23 Encounter for immunization (principal)
CPT/HCPCS: 0001A; 0002A; 91300

== ENCOUNTER → 2020-09-22 09:11 | Outpatient (CLI) | payer OTHER, SELFPAY ==
[2020-09-22 08:43] VITALS: BMI 28.3
[2020-09-22 12:07] LABS: Absolute Lymphocyte Count 1.42 X10^3/uL (0.83-4.51); Basophil# 0.03 X10^3/uL; Basophil% 0.5 % (0-1); Eosinophil# 0.27 X10^3/uL; Eosinophils% 4.3 % (0-5); Hematocrit 46.2 % (40-54); Hemoglobin 15.6 g/dL (13.0-16.5); Lymphocyte # 1.42 X10^3/ul (0.83-4.51); Lymphocyte % 22.6 % (19-41); Mean Corp Hgb Conc 33.8 g/dL (32-36); Mean Corpuscular Hgb 29.4 pg (27.0-32.0); Mean Platelet Vol. 10.7 fl (6.2-12.0); Monocyte# 0.52 X10^3/uL; Monocyte% 8.3 % (0-10); NRBC Flagged by Analyzer 0 % (0-5); Neutrophil # 4.03 X10^3/uL (2.7-7.7); Platelet Count 215 K/mm3 (150-450); RBC Distribution Width CV 12.1 % (11.6-14.6); RBC Distribution Width SD 38.5 fl (35.1-43.9); Red Blood Count 5.31 M/mm3 (4.6-6.2); White Blood Count 6.3 K/mm3 (4.4-11.0)
[2020-09-22 12:43] LABS: ALB/GLOB Ratio 1.3 RATIO (0.9-2.4); AST(SGOT) 20 U/L (15-37); Alanine Aminotransfer ALT/SGPT 47 U/L (16-61); Alkaline Phosphatase 88 U/L (45-117); Anion Gap 5 (5-15); BUN 18 mg/dL (7-18); BUN/Creat Ratio 25.8 RATIO (10-20); Calcium,Total 9.1 mg/dL (8.5-10.1); Chloride 106 mmol/L (98-107); Cholesterol 180 mg/dL (200); EST Glomerular Filtration Rate 122 mL/min (>60); Est Glom Filt Rate - Afr Amer 148 mL/min (>60); Globulin 3.1 g/dL (2.2-4.2); Glucose 100 mg/dL (74-106); High Density Lipoprotein 41 mg/dL; PSA,Total - Annual Screen 1.44 ng/mL (0.00-4.00); Potassium 3.8 mmol/L (3.5-5.1); Protein, Total 7.1 g/dL (6.4-8.2); Sodium Level 140 mmol/L (136-145); Triglycerides 195 mg/dL; Very Low Density Lipoprotein 39 mg/dL (5-40)
== END ==
PROVIDERS: Nurse Practitioner Family; PCP Internal Medicine; Visit Provider Internal Medicine
DX: I10 Essential (primary) hypertension (principal); E66.9 Obesity, unspecified; E78.5 Hyperlipidemia, unspecified; K21.9 Gastro-esophageal reflux disease without esophagitis; Z12.5 Encounter for screening for malignant neoplasm of prostate
CPT/HCPCS: 36415; 80053; 80061; 84153; 85025; G0103

== ENCOUNTER 2020-10-20 09:30 | Outpatient (RCR) | payer OTHER, SELFPAY ==
[2020-09-22 08:43] VITALS: BMI 28.3
--- NOTE | 2020-09-30 12:20 | HP.PTEVAL ---
Patient's Visit Information DALE MERCEDES is a 59 year old M referred to Physical Therapy by Dr. Mae Damico MD with a diagnosis of LESION OF SCIATICA NERVE. Date of Evaluation: 09/29/20 Physical Therapist: Sidney Ramirez PT, Cert MDT, OCS - Visit Plan Frequency: 2x /Week Duration: 4 Weeks Plan: PT INTERVETIONS MODALTIES ,DLS ABD/BACK ,HIP STRENGTHENING ,ROM/FLEXABLITY AND POSTURAL EX'S - Subjective This 59 y/o male presents to physical therapy with lumbar radicular symptoms right .Patient has had symptoms for 2weeks when driving. Pain located right located right glut to hams below. Seen DR recommended anti-inflammatory. Seen chiropractor for adjustments. Patient has TENS . Aggravating factors sitting, bending lifting and stairs. Alleviating factors MEDS and chiropractors. Denies parathesia/tingling. Bowel/bladder-. Coughing/sneezing-. Patient boothe s no h/o trauma. Patient has no abnormal night pain. Meloxicam helps. Patient pain affects housework tasks and job demands. VOCATION: [employer]. SOCIAL: single - Pain Right Buttocks Pain Intensity (Out of 10): 1 Pain Intensity Range: 10 - Objective POSTURE: mild forward posture. GAIT: reciprocal pattern. PALPATION: tender LS, greater trochanter and IT band. FLEXABLITY: hams mod tight, piriformis mod, IR 5 degrees pain. SYMMTRIES: align. MMT: quads 4-/5,hip flexion 3+/5,hams 4/5,ankle 4/5 right, left 4/5,hip flexion 4-/5,ankle 4/5. LUMBAR ROM: flexion mod loss, extension mod loss pain right L'S, side glides mild loss - Special Tests L/S Slump test left side: Negative L/S Slump test right side: Positive L/S Left Straight Leg Raise: Negative L/S Right Straight Leg Raise: Positive Lumbar Standing: Flexion - Mechanical Response: No effect Lumbar Standing: Flexion - Symptoms During Testing: Increases Lumbar Standing: Flexion - Symptoms After Testing: Worse Lumbar Standing: Extension - Mechanical Response: No effect Lumbar Standing: Extension - Symptoms During Testing: Increases Lumbar Standing: Extension - Symptoms After Testing: Worse Comments:: right LS Lumbar Standing: Right Side Glides - Mechanical Response: No effect Lumbar Standing: Right Side [place] - Symptoms During Testing: No effect Lumbar Standing: Right Side [place] - Symptoms After Testing: No effect Lumbar Standing: Left Side [place] - Mechanical Response: No effect Lumbar Standing: Left Side [place] - Symptoms During Testing: No effect Lumbar Standing: Left Side [place] - Symptoms After Testing: No effect Lumbar Lying: Flexion - Mechanical Response: No effect Lumbar Lying: Flexion - Symptoms During Testing: Increases Lumbar Lying: Flexion - Symptoms After Testing: No worse Lumbar Lying: Extension - Mechanical Response: No effect Lumbar Lying: Extension - Symptoms During Testing: Increases Lumbar Lying: Extension - Symptoms After Testing: Centralized Comments:: BACK R Hip Scour: Positive R Hip [place] - IT Band: Positive - Goals Goal 1:: I with HEP Goal Time Frame: 4-6 Weeks Goal 2:: Decrease pain back and hip by 50% or > to improve function with ADL'S and job demands. Goal Time Frame: 4-6 Weeks Goal 3:: Patient to improve lumbar ROM for function of recovery Goal Time Frame: 4-6 Weeks Goal 4:: Patient to increase strength right leg by 4/5 to improve function and job demnads. Goal Time Frame: 4-6 Weeks Goal 5:: Patient to improve back owestry score by 5 points or > to improve QOL and job demnads. Goal Time Frame: 4-6 Weeks - Rehabilitation Potential Physical Therapy Diagnosis: Patient has lumbar pain with radicular symptoms with pain lumbar motion ,position, bending lifting and tenderness greater trochanter and IT BAND ,weakness legs affects job demands and function thus benifit from skilled PT Rehabilitation Potential: Good - Anticipated Interventions Patient/Client Instruction: Educate patient on: Condition, Plan of Care For the Purpose of:: To decrease pain, To increase ROM, To improve muscle performance and motor function, To improve ability to perform ADL's, To increase tolerance to activity/condition/position, To improve performance and independence with ADL's, To improve ability of physical actions for home/community/work/leisure, To improve health of tissue, To decrease soft tissue restriction, To increase flexibility/ROM, To reduce risk of recurrence, To improve health and function, To improve ability to perform tasks related to life management Therapeutic Exercise to Include: Strength training, Body mechanics, Postural training, Flexibilty training, Passive ROM, Dynamic Lumbar Stabilization, [place] Exercises For the Purpose of:: To decrease pain, To increase ROM, To improve muscle performance and motor function, To improve ability to perform ADL's, To increase tolerance to activity/condition/position, To improve ability of physical actions for home/community/work/leisure, To improve health of tissue, To decrease soft tissue restriction, To increase flexibility/ROM, To reduce risk of recurrence, To prevent re-injury, To improve ability to perform tasks related to life management TENS: Yes IF ES: Yes Cryotherapy (ice pack, ice massage): Yes Thermo therapy (hot pack): Yes Ultrasound (thermal/non thermal): Yes For the Purpose of:: To decrease pain, To increase ROM, To improve health of tissue, To decrease soft tissue restriction Thank you for the opportunity to evaluate your patient. For Medicare and Medicare HMO plans, please review the plan of care and approve it. It will need to be FAXED BACK to us at [phone] for Medicare purposes. For Medicare only, by signing this I certify the plan of care. Please let me know if there are questions or concerns regarding this plan of care. Physician Signature: Date:
--- NOTE | 2020-10-20 09:53 | HP.PTDCSUM ---
It has been my pleasure to treat DALE MERCEDES referred by Dr. Mae Damico MD, with the diagnosis of LESION OF SCIATICA NERVE for a total of 3 visit(s). Discharge Date: 10/20/20 Please see the following information for a summary of their discharge status. Subjective: Doing well no pain ,RTW fully duty tomorrow Right Buttocks Pain Intensity (Out of 10): 0 % Improvement: 97 Objective/Function: POSTURE: MILD FORWARD. GAIT: RECIPROCA LPATTERN. MMT: 5/5. LUMBAR ROM: WFL. BLE: WFL Goal 1:: I with HEP Goal Progress: Goal Met Goal 2:: Decrease pain back and hip by 50% or > to improve function with ADL'S and job demands. Goal Progress: Goal Met Goal 3:: Patient to improve lumbar ROM for function of recovery Goal Progress: Goal Met Goal 4:: Patient to increase strength right leg by 4/5 to improve function and job demnads. Goal Progress: Goal Met Goal 5:: Patient to improve back owestry score by 5 points or > to improve QOL and job demnads. Plan: D/C TO HOME Discharge Comments: HEP If there are questions or concerns regarding this patient's physical therapy, please feel free to call me at [phone]. Thank you for the referral of this patient. Sincerely, Sidney Ramirez PT, Cert MDT, OCS
== END 2020-10-20 19:00 | disposition home or self-care (01) ==
LOC: PT 09:30
PROVIDERS: PCP Internal Medicine; Referring Provider Internal Medicine; Visit Provider Internal Medicine
DX: G57.01 Lesion of sciatic nerve, right lower limb (principal)
CPT/HCPCS: 97035; 97110; 97162; 97530

== ENCOUNTER 2021-05-04 08:47 | Outpatient (CLI) | payer OTHER, SELFPAY ==
[2021-05-04 12:09] LABS: Absolute Lymphocyte Count 1.77 X10^3/uL (0.83-4.51); Absolute Neutrophil Count 4.7 X10^3/uL (2.0-7.7); Basophil# 0.04 X10^3/uL; Basophil% 0.5 % (0-1); Eosinophil# 0.34 X10^3/uL; Eosinophils% 4.5 % (0-5); Hematocrit 44.5 % (40-54); Hemoglobin 14.8 g/dL (13.0-16.5); Lymphocyte # 1.77 X10^3/ul (0.83-4.51); Lymphocyte % 23.4 % (19-41); Mean Corp Hgb Conc 33.3 g/dL (32-36); Mean Corpuscular Hgb 28.8 pg (27.0-32.0); Mean Corpuscular Volume 86.7 fL (80-94); Mean Platelet Vol. 10.3 fl (6.2-12.0); Monocyte# 0.71 X10^3/uL; Monocyte% 9.4 % (0-10); NRBC Flagged by Analyzer 0 % (0-5); Neutrophil # 4.68 X10^3/uL (2.7-7.7); Neutrophil % 61.9 % (47-70); Platelet Count 259 K/mm3 (150-450); RBC Distribution Width CV 12.1 % (11.6-14.6); RBC Distribution Width SD 38.6 fl (35.1-43.9); Red Blood Count 5.13 M/mm3 (4.6-6.2); White Blood Count 7.6 K/mm3 (4.4-11.0)
[2021-05-04 12:37] LABS: ALB/GLOB Ratio 1.2 RATIO (0.9-2.4); AST(SGOT) 19 U/L (15-37); Alanine Aminotransfer ALT/SGPT 38 U/L (16-61); Albumin, Serum 3.8 g/dL (3.2-5.0); Alkaline Phosphatase 88 U/L (45-117); Anion Gap 7 (5-15); BUN 15 mg/dL (7-18); BUN/Creat Ratio 20.3 RATIO (10-20); Calcium,Total 9.3 mg/dL (8.5-10.1); Chloride 103 mmol/L (98-107); Cholesterol 180 mg/dL (200); Creatinine, Serum 0.74 mg/dL (0.70-1.30); EST Glomerular Filtration Rate 114 mL/min (>60); Est Glom Filt Rate - Afr Amer 138 mL/min (>60); Globulin 3.3 g/dL (2.2-4.2); Glucose 116 mg/dL (74-106); High Density Lipoprotein 37 mg/dL; Potassium 3.7 mmol/L (3.5-5.1); Protein, Total 7.1 g/dL (6.4-8.2); Sodium Level 143 mmol/L (136-145); Thyroid Stim Hormone (TSH) 0.89 uIU/mL (0.358-3.74); Triglycerides 223 mg/dL; Very Low Density Lipoprotein 45 mg/dL (5-40)
== END 2021-05-04 23:59 | disposition short-term general hospital (02) ==
PROVIDERS: PCP Internal Medicine; Referring Provider Nurse Practitioner Family; Visit Provider Nurse Practitioner Family
DX: Z00.00 Encounter for general adult medical examination without abnormal findings (principal)
CPT/HCPCS: 36415; 80053; 80061; 84443; 85025

== ENCOUNTER 2021-07-13 07:50 | Day surgery (SDC) | payer OTHER, SELFPAY ==
[2021-07-13] VITALS (7 sets, daily range): BP systolic 107–136; BP diastolic 63–79; PULSE 58–66; RESP 16–18; TEMP 36.1–36.4; O2SAT 99–100; BMI 27.5
[2021-07-13] MEDS: Lactated Ringers 1,000 ML 15 ML IV (08:22)
--- NOTE | 2021-07-13 08:33 | HP.PCM_ITS ---
HPI - General HPI Narrative DALE MERCEDES, is a 60 M who presents for screening colonoscopy. Patient last colonoscopy was about [address] Jarvis negative per patient. Patient's father had colon cancer at age 63?patient previously thought it was prostate cancer. Patient has bowel moods daily denies any blood. Denies any chronic abdominal pain nausea vomiting or reflux. [facility] Medical History (Updated 07/13/21 @ 09:[address] Rosa Isela Cox MD) Alcohol use Back pain Depression Encounter for preventative adult health care examination Former smoker GERD (gastroesophageal reflux disease) Hyperlipemia Hypertension Leg cramps Major depressive disorder, recurrent severe without psychotic features Metabolic syndrome Obesity Piriformis syndrome of right side Varicose veins of left leg with edema Wears glasses Wears partial dentures Home Medications multivitamin 1 cap PO DAILY 06/27/19 [History Last Taken Unknown] ascorbic acid (vitamin C) 1,000 mg tablet 1 g PO DAILY tab 05/07/20 [History Last Taken Unknown] potassium chloride 10 mEq tablet,extended release 10 meq PO DAILY #90 tab 08/30/20 [Rx Last Taken Unknown] amlodipine 10 mg tablet 10 mg PO QDAY #90 tab 09/02/20 [Rx Last Taken 07/13/21 05:57] simvastatin 20 mg tablet 20 mg PO QPM #90 tab 10/05/20 [Rx Last Taken Unknown] omeprazole 20 mg capsule,delayed release 20 mg PO QDAY PRN #90 cap 11/01/20 [Rx Last Taken 07/13/21 05:57] bupropion HCl 150 mg 24 hr tablet, extended release See Rx Instructions .ROUTE .COMPLEX #10 tab 02/18/21 [Rx Last Taken Unknown] losartan 100 mg tablet 100 mg PO QDAY #10 tab 02/18/21 [Rx Last Taken Unknown] hydrochlorothiazide 25 mg tablet See Rx Instructions .ROUTE .COMPLEX #90 tablet 04/21/21 [Rx Last Taken Unknown] metaxalone 800 mg tablet 800 mg PO QDAY PRN #90 tab 04/21/21 [Rx Last Taken Unknown] turmeric mg PO 07/11/21 [History Last Taken Unknown] Allergy/AdvReac Type Severity Reaction Status Date / Time lisinopril Allergy Mild Cough Verified 07/13/21 08:12 Family History Father Cancer liver and prostate Grandmother Cancer lung Surgical History Normal colonoscopy vascular ablasion Social History Smoking Status: Former smoker Tobacco: How many years used: 29 how long ago did patient quit smokin alcohol intake: current alcohol intake frequency: a few times a month Alcohol type: beer substance use type: does not use what type of physical activity do you participate in: aerobics frequency: daily Past Medical/Surgical History Planned Operation Planned Operative Procedure/s: Colonoscopy Previous Hospitalizations/Surgeries HX Hospitalizations: No Any Problems With Anesthesia: No You/Your Family Experience Fever (Hyperthermia) With Anes: No Cholinesterase deficiency: No Cardiovascular Hx of Irregular Heartbeat and/or Afib: No Hx Heart Attack: No Hx Congestive Heart Failure: No Hx Hypertension: Yes (per pt, controlled on meds) Hx Pacemaker: No Respiratory Hx Chronic Obstructive Pulmonary Disease (COPD): No Hx Asthma: No Hx Emphysema: No Hx Sleep Apnea: No Hx Respiratory Tract Infection/Cold (presently): No Do You Snore Loudly (louder than talking or can be heard): Yes Do You Often Feel Tired/ Fatigued/ Sleepy Dring Daytime?: No Has Anyone Observed You Stop Breathing During Sleep?: Yes Result (for STOP score): Positive Smoking Status: Former smoker Gastrointestinal Hx Gastroesophageal Reflux: Yes Controlled With Meds: Yes Hx Ulcer: No Special diet followed at home: No Neurological Hx Seizures: No Hx Head/Neck Injury: Yes Hx Headaches: No Hx Back Injury/Pain: No Does patient have nerve stimulator: No Blood Disorder Hx Anemia: No Genitourinary Hx Renal Disease: No Hx Dialysis: No Musculoskeletal Hx Arthritis: No Hx Rheumatoid Arthritis: No Endocrine Hx Diabetes: No Psycho/Social Hx Depression: Yes Miscellaneous Hx Cancer: No Recent Exposure to Contagious Disease: No Allergies lisinopril Allergy (Mild, Verified 07/13/21 08:12) Cough Discharge Is Pt Admitted From a Long Term, or a Detention: No Who Could Help: family After D/C, Where Do you Plan to Go: Return Home Vital Signs Vital Signs Vital Signs: 07/13/21 08:13 07/13/21 08:14 Temperature 97.5 F L Temperature Source Temporal Pulse Rate 65 Respiratory Rate 18 Respiratory Pattern Normal Blood Pressure 136/72 H Blood Pressure Mean 93 Blood Pressure Source Monitor Blood Pressure Position Semi-Fowlers Blood Pressure Location Right Arm Pulse Ox 100 Oxygen Delivery Method Room Air Weight Weight: 192 lb Body Mass Index (BMI) 27.5 Physical Exam Const alert, oriented x3 and no apparent distress HEENT normocephalic and head/scalp atraumatic Resp normal respiratory effort Cardio regular rate GI soft to palpation and non-tender; Negative for non-distended Palpation: Negative for guarding Extremity no clubbing, cyanosis or edema Neuro CN's II-XII intact bilaterally Psych mental status grossly normal Assessment & Plan Assessment/Plan (1) Family history of colon cancer in father: Procedure Criteria Type of Procedure Procedure Type: Elective Elective Risks - COVID COVID Risk Discussion: The surgeon/proceduralist and patient have discussed in detail the risk of exposure to and/or potential harm posed by the COVID-19 virus with having a surgery/procedure at this time versus the risk of delaying the surgery/procedure. It is not possible to know either the risk of delaying the surgery or procedure or chance of getting an infection with perfect accuracy, but a joint decision was made between the patient and the surgeon/proceduralist to proceed at this time with the scheduled surgery/procedure as indicated on the consent form. Surgery Risks - Colonoscopy Risks Include but are not Limited To: Risks include but are not limited to: Bleeding, perforation requiring further surgery, inability to complete colonoscopy requiring barium enema.
--- NOTE | 2021-07-13 09:15 | COLBX_PTH ---
PATIENT: DALE MERCEDES LOC: EN U#:[id number] AGE/SX: 60/M ROOM: RE07/13/[address]: Dr. Rosa Isela Cox MD : 1960 BED: DIS: 07/13/2021 SPEC #: [id number] RECD: 07/13/21 12:19 STATUS: JAMI ANITA #: [id number] ADRIAN: 07/13/21 09:[address]: Rosa Isela Cox DEPT: SURGICAL PATHOLOGY RECD BY: Cynthia Pratt ENTERED: 07/13/21 13:03 SP TYPE: COLON BX OT DR: Dr. Mae Damico MD Tissues: A - Ascending colon B - Descending colon Procedures: Surgery Specimen Level IV HEADER OPERATION: Colonoscopy ? open access (MAC) PRE-OP DIAGNOSIS: Family of colon cancer TISSUE SUBMITTED: A ? Proximal ascending colon biopsy, B ? Descending colon biopsy MICROSCOPIC DIAGNOSIS A. Proximal ascending colon, biopsy: Tubular adenoma. B. Descending colon, biopsy: Tubular adenoma. KRISSY:tabitha 07/14/2021 MICROSCOPIC DESCRIPTION Slides are reviewed. GROSS DESCRIPTION A - Received in fixative is one container labeled with the patient's name and designated proximal ascending colon biopsy. The specimen consists of one irregular fragment of light meza soft tissue that measures 0.4 x 0.3 x 0.1 cm. The specimen is totally submitted in one cassette. B - Received in fixative is one container labeled with the patient's name and designated descending colon biopsy. The specimen consists of one irregular fragment of light meza soft tissue that measures 0.3 x 0.3 x 0.1 cm. The specimen is totally submitted in one cassette. / KRISSY:tabitha 07/13/2021 TC:1 CPT: 67747 x2
--- NOTE | 2021-07-13 09:45 | OP.COLON_ITS ---
Patient Name: Naren Turner Procedure Date: 07/13/2021 9:06 AM Date of : 1960 Age: 60 Procedure: Colonoscopy Indications: Colon cancer screening in patient at increased risk: Colorectal cancer in father Providers: Rosa Isela Cox MD Medicines: Monitored Anesthesia Care Patient Profile: This is a 60 year old male. Last Colonoscopy: 10 years ago. Complications: No immediate complications. Procedure: Pre-Anesthesia Assessment: - Prior to the procedure, a History and Physical was performed, and patient medications and allergies were reviewed. The patient's tolerance of previous anesthesia was also reviewed. The risks and benefits of the procedure and the sedation options and risks were discussed with the patient. All questions were answered, and informed consent was obtained. Prior Anticoagulants: The patient has taken no previous anticoagulant or antiplatelet agents. ASA Grade Assessment: Per anesthesia. After reviewing the risks and benefits, the patient was deemed in satisfactory condition to undergo the procedure. After I obtained informed consent, the scope was passed under direct vision. Throughout the procedure, the patient's blood pressure, pulse, and oxygen saturations were monitored continuously. The colonoscope was introduced through the anus and advanced to the cecum, identified by the appendiceal orifice, ileocecal valve and palpation. The colonoscopy was performed without difficulty. The patient tolerated the procedure well. The quality of the bowel preparation was good. Scope In: 9:15:16 AM Scope Withdrawal Time 0 hours 18 minutes 7 seconds Scope Out: 9:40:18 AM Total Procedure Duration Time 0 hours 25 minutes 2 seconds Findings: The perianal and digital rectal examinations were normal. Two sessile polyps were found in the descending colon and proximal ascending colon. The polyps were less than 5 mm in size. These polyps were removed with a cold biopsy forceps. Resection and retrieval were complete. The exam was otherwise without abnormality on direct and retroflexion views. Impression: - Two less than 5 mm polyps in the descending colon and in the proximal ascending colon, removed with a cold biopsy forceps. Resected and retrieved. - The examination was otherwise normal on direct and retroflexion views. Recommendation: - Discharge patient to home. - Resume previous diet. - Continue present medications. - Await pathology results. - Repeat colonoscopy in 3 years for surveillance based on pathology results. Procedure Code(s): --- Professional --- 09403, PT, Colonoscopy, flexible; with biopsy, single or multiple Diagnosis Code(s): --- Professional --- Z80.0, Family history of malignant neoplasm of digestive organs D12.4, Benign neoplasm of descending colon D12.2, Benign neoplasm of ascending colon CPT copyright 2017 [employer]. All rights reserved. The codes documented in this report are preliminary and upon audio/visual operator review may be revised to meet current compliance requirements. MD Rosa Isela Baltazar MD 07/13/2021 9:45:02 AM This report has been signed electronically. Number of Addenda: 0 Note Initiated On: 07/13/2021 9:06 AM
--- NOTE | 2021-07-13 09:46 | OP.CCLET_ITS ---
07/13/2021 Mae Damico MD [address] [place] [address] [place] [address] Re : Colonoscopy procedure for Naren Turner Dear Dr. Damico This procedure was performed on Tuesday, July 13, 2021. My impressions and recommendations are as follows: Impressions : - Two less than 5 mm polyps in the descending colon and in the proximal ascending colon, removed with a cold biopsy forceps. Resected and retrieved. - The examination was otherwise normal on direct and retroflexion views. Recommendations : - Discharge patient to home. - Resume previous diet. - Continue present medications. - Await pathology results. - Repeat colonoscopy in 3 years for surveillance based on pathology results. My findings are described in the full procedure note, which is enclosed. If I can be of further assistance, please feel free to contact me at Doctor phone number(s): , Work: . Sincerely, MD Rosa Isela Baltazar MD 07/13/2021 9:45:02 AM This report has been signed electronically.
== END 2021-07-13 23:59 | disposition home or self-care (01) ==
LOC: EN 07:52 → AC 07:53
PROVIDERS: PCP Internal Medicine; Referring Provider Internal Medicine; Visit Provider Surgery
PROC: 0DJD8ZZ Inspection of Lower Intestinal Tract, Via Natural or Artificial Opening Endoscopic (ICD-10-PCS; CPT 45378; principal; 2021-07-13 09:10)
DX: Z12.11 Encounter for screening for malignant neoplasm of colon (principal); D12.4 Benign neoplasm of descending colon; D12.2 Benign neoplasm of ascending colon; E78.5 Hyperlipidemia, unspecified; I10 Essential (primary) hypertension; F32.A Depression, unspecified; K21.9 Gastro-esophageal reflux disease without esophagitis; Z80.0 Family history of malignant neoplasm of digestive organs; Z87.891 Personal history of nicotine dependence; Z79.899 Other long term (current) drug therapy
CPT/HCPCS: 45380; 88305; J7120; J2405

== ENCOUNTER → 2021-11-02 | Outpatient (CLI) | payer OTHER, SELFPAY ==
[2021-11-02 13:01] LABS: Anion Gap 1 (5-15); BUN 13 mg/dL (7-18); BUN/Creat Ratio 17.2 RATIO (10-20); Calcium,Total 9.1 mg/dL (8.5-10.1); Chloride 106 mmol/L (98-107); Cholesterol 177 mg/dL (200); Creatinine, Serum 0.75 mg/dL (0.70-1.30); EST Glomerular Filtration Rate 112 mL/min (>60); Est Glom Filt Rate - Afr Amer 135 mL/min (>60); Glucose 114 mg/dL (74-106); High Density Lipoprotein 39 mg/dL; Potassium 3.7 mmol/L (3.5-5.1); Sodium Level 142 mmol/L (136-145); Triglycerides 158 mg/dL; Very Low Density Lipoprotein 32 mg/dL (5-40)
== END | disposition home or self-care (01) ==
LOC: BIMLAB 08:45
PROVIDERS: PCP Internal Medicine; Referring Provider Internal Medicine; Visit Provider Internal Medicine
DX: I10 Essential (primary) hypertension (principal); E78.5 Hyperlipidemia, unspecified
CPT/HCPCS: 36415; 80048; 80061

== ENCOUNTER 2022-01-24 07:04 | Emergency (ER) | payer OTHER, SELFPAY ==
[2022-01-24 07:05] VITALS: BP 127/86; PULSE 78; RESP 16; TEMP 36.9; O2SAT 95; BMI 32.8
[2022-01-24 07:11] VITALS: O2SAT 94
--- NOTE | 2022-01-24 07:12 | CT_ITS ---
EXAM: CT CHEST, ABDOMEN AND PELVIS WITH INTRAVENOUS CONTRAST CLINICAL INDICATION: trauma -- injury right post rib/RUQ TECHNIQUE: Helically acquired images were obtained of the chest, abdomen and pelvis with intravenous contrast. This CT exam was performed using one or more of the following dose reduction techniques: automated exposure control, adjustment of the mA and/or kV according to patient size, and/or use of iterative reconstruction technique. This report was created using [employer] report generation technology. CONTRAST: IV 100mL [id number]-300 RADIATION DOSE: CTDIvol = 18.33 mGy, DLP = 1594.11 mGy-cm COMPARISON: None. FINDINGS: CHEST: LUNGS AND PLEURAL SPACES: Unremarkable. No mass. No consolidation or edema. No pleural effusion or thickening. No pneumothorax. HEART: Normal cardiac size. Normal pericardium. Heart size is normal. No significant coronary artery calcifications. MEDIASTINUM: Unremarkable. No mediastinal or hilar adenopathy. Esophagus is unremarkable. No hiatal hernia. THYROID: 2 x 1.2 x 1.9 cm solid the hypodense nodule in the left thyroid lobe. ABDOMEN: LIVER: Unremarkable. Homogeneous. No focal mass. GALLBLADDER AND BILE DUCTS: Unremarkable. No calcified gallstones. No gallbladder distention or wall edema. No intra- or extrahepatic biliary ductal dilation. PANCREAS: Unremarkable. No focal cystic or solid mass. SPLEEN: Unremarkable. Normal size without focal cystic or solid mass. ADRENALS: Unremarkable. No nodules. KIDNEYS AND URETERS: 1.8 x 1.7 cm nonenhancing hypodense cyst in the right posterior renal parenchyma. It has a CT number of 17.0 [place] units. No stones or hydronephrosis in both kidneys. No mass in both kidneys. Normal renal size and position. STOMACH AND BOWEL: Small hiatal hernia. No stomach or bowel distention. No focal inflammatory change. PELVIS: APPENDIX: No evidence of acute appendicitis. BLADDER: Unremarkable. REPRODUCTIVE: Unremarkable as visualized. No mass. CHEST, ABDOMEN and PELVIS: INTRAPERITONEAL SPACE: Unremarkable. No ascites or other fluid collection. No free air. BONES/JOINTS: Unremarkable. No suspicious lytic or blastic abnormality. SOFT TISSUES: Unremarkable. No discrete abdominal or pelvic wall hernia. VASCULATURE: Normal thoracic aorta. Normal pulmonary arteries. Minimal calcified plaques in the infrarenal abdominal aorta and common iliac arteries. No abdominal aortic aneurysm. No aortic dissection. No obvious central pulmonary embolism although this study was not performed with the pulmonary embolism protocol. LYMPH NODES: Unremarkable. No enlarged lymph nodes. OTHER FINDINGS: Minimal dependent atelectases in the right posterior subpleural parenchyma. CT/CT Chest, Abd, Pel w/Contrast IMPRESSION: 1. No solid organ injury or acute abnormality in the chest, abdomen and pelvis. 2. 2 x 1.2 x 1.9 cm solid hypodense nodule in the left thyroid lobe. ACR White Paper guidelines (Adriano SierraK, et al. JACR 2015;12(2):143-50) suggest further evaluation with thyroid ultrasound. 3. 1.8 x 1.7 cm nonenhancing hypodense cyst in the right posterior renal parenchyma. ACR White Paper guidelines (Herts, et al. JACR 2018; 15(2):264-273) suggest no follow-up is necessary. 4. Small hiatal hernia. Electronically Signed: Colton Sadler MD at 8:34 EDT ,
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
[2022-01-24 07:37] LABS: Hematocrit 42.1 % (40-54); Hemoglobin 14.5 g/dL (13.0-16.5); Mean Corp Hgb Conc 34.4 g/dL (32-36); Mean Corpuscular Hgb 30.1 pg (27.0-32.0); Mean Corpuscular Volume 87.3 fL (80-94); Platelet Count 239 K/mm3 (150-450); RBC Distribution Width CV 12.2 % (11.6-14.6); Red Blood Count 4.82 M/mm3 (4.6-6.2); White Blood Count 7.2 K/mm3 (4.4-11.0)
[2022-01-24 07:44] LABS: ALB/GLOB Ratio 1.1 RATIO (0.9-2.4); AST(SGOT) 22 U/L (15-37); Alanine Aminotransfer ALT/SGPT 36 U/L (16-61); Albumin, Serum 3.4 g/dL (3.2-5.0); Alkaline Phosphatase 78 U/L (45-117); Anion Gap 6 (5-15); BUN 17 mg/dL (7-18); BUN/Creat Ratio 17.7 RATIO (10-20); Calcium,Total 9.1 mg/dL (8.5-10.1); Chloride 105 mmol/L (98-107); Creatinine, Serum 0.96 mg/dL (0.70-1.30); EST Glomerular Filtration Rate 84 mL/min (>60); Est Glom Filt Rate - Afr Amer 102 mL/min (>60); Estimated Creatinine Clearance 77.19 ml/min; Globulin 3.1 g/dL (2.2-4.2); Glucose 173 mg/dL (74-106); Lipase 124 U/L (73-393); Potassium 3.4 mmol/L (3.5-5.1); Protein, Total 6.5 g/dL (6.4-8.2); Sodium Level 142 mmol/L (136-145)
[2022-01-24 07:45] LABS: International Normalized Ratio 1.1; Partial Thromboplast Time 24.1 Seconds (24.1-36.2); Prothrombin Time (Protime)PT. 13.7 SECONDS (11.7-14.9)
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
[2022-01-24] MEDS: fentaNYL 100 MCG/2 ML Ampul 50 MCG IV (09:01)
[2022-01-24 10:17] VITALS: PULSE 76; RESP 16; O2SAT 98
== END 2022-01-24 10:18 | disposition home or self-care (01) ==
PROVIDERS: Emergency Provider Emergency Medicine; PCP Internal Medicine; Visit Provider Emergency Medicine
DX: S20.20XA Contusion of thorax, unspecified, initial encounter (principal); E04.1 Nontoxic single thyroid nodule; S93.401A Sprain of unspecified ligament of right ankle, initial encounter; I10 Essential (primary) hypertension; E78.5 Hyperlipidemia, unspecified; S30.1XXA Contusion of abdominal wall, initial encounter; Z87.891 Personal history of nicotine dependence; M25.521 Pain in right elbow; F41.9 Anxiety disorder, unspecified; F32.A Depression, unspecified; V43.52XA Car driver injured in collision with other type car in traffic accident, initial encounter; N28.1 Cyst of kidney, acquired; Z79.899 Other long term (current) drug therapy
CPT/HCPCS: 71260; 73610; 74177; 80053; 83690; 85027; 85610; 85730; 96374; 99285; Q9967; A4216

== ENCOUNTER → 2022-01-25 | Outpatient (CLI) | payer OTHER, SELFPAY ==
[2022-01-25 13:00] LABS: T4 Free Direct 1.17 ng/dL (0.76-1.46)
== END | disposition home or self-care (01) ==
LOC: BIMLAB 11:07
PROVIDERS: PCP Internal Medicine; Referring Provider Internal Medicine; Visit Provider Internal Medicine
DX: E04.1 Nontoxic single thyroid nodule (principal)
CPT/HCPCS: 36415; 84439; 84443

== ENCOUNTER → 2022-01-31 | Outpatient (CLI) | payer OTHER, SELFPAY ==
--- NOTE | 2022-01-31 16:11 | US_ITS ---
STUDY: THYROID ULTRASOUND REASON FOR EXAM: Male, 61 years old. Thyroid Nodule TECHNIQUE: Ultrasound evaluation of the thyroid was performed with real-time and static carbajal-scale imaging. COMPARISON: None. FINDINGS: RIGHT LOBE: The right lobe of the thyroid gland measures 5.3 x 2.0 x 1.9 cm. There is a homogeneous echotexture. There is a right midpole posterior hypoechoic nodule 0.48 x 0.24 x 0.40 cm. Within the right lower pole there is a complex cyst or solid and cystic components 0.75 x 0.52 x 0.67 cm. LEFT LOBE: The left lobe of the thyroid gland measures 4.8 x 2.4 x 2.5 cm. There is a homogeneous echotexture. There is a solid nodule which is inhomogeneously hyperechoic within the left lobe in the mid to lower pole 2.6 x 1.8 x 2.0 cm. Additional smaller solid nodules and cysts are seen within the right lobe. ISTHMUS: The isthmus measures 3 mm . The regional lymph nodes are normal. US/Thyroid IMPRESSION: Multicystic/nodular goiter as above. Electronically Signed: Edmond Cordoba MD, [facility] at 8:41 EDT ,
== END | disposition home or self-care (01) ==
LOC: US 16:09
PROVIDERS: PCP Internal Medicine; Referring Provider Internal Medicine; Visit Provider Internal Medicine
DX: E04.1 Nontoxic single thyroid nodule (principal)
CPT/HCPCS: 76536

== ENCOUNTER → 2022-02-14 | Outpatient (CLI) | payer OTHER, SELFPAY ==
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
== END | disposition home or self-care (01) ==
LOC: MTRAD 13:46
PROVIDERS: PCP Internal Medicine; Referring Provider Nurse Practitioner Family; Visit Provider Nurse Practitioner Family
DX: M25.562 Pain in left knee (principal)
CPT/HCPCS: 73564

== ENCOUNTER → 2022-02-15 | Outpatient (CLI) | payer OTHER, SELFPAY ==
--- NOTE | 2022-02-15 | FLU_PTH ---
PATIENT: DALE MERCEDES LOC: [facility] U#:[id number] AGE/SX: 61/M ROOM: RE02/15/[address]: Dr. Roberto Carlos Wheeler MD : 1960 BED: DIS: 02/15/2022 SPEC #: [id number] RECD: 02/15/22 14:21 STATUS: JAMI ANITA #: [id number] ADRIAN: 02/15/22 00:[address]: Roberto Carlos Wheeler DEPT: CYTOLOGY RECD BY: Errol Freeman ENTERED: 02/16/22 08:40 SP TYPE: Fluid OTHR DR: Dr. Mae Damico MD Tissues: A - Thyroid gland, NOS B - Thyroid gland, NOS Procedures: Special Stain Group II Surgery Specimen Level IV Cytospin Fluid HEADER OPERATION: Left mid to lower pole thyroid nodule, fine needle aspiration PRE-OP DIAGNOSIS: Left mid to lower pole thyroid nodule TISSUE SUBMITTED: A - Left mid to lower pole thyroid nodule fluid, B - Left mid to lower pole thyroid nodule x4 slides DIAGNOSIS CYTOLOGY A. Fine needle aspiration, left mid to lower pole of thyroid nodule (cytospin and cell block): Benign, consistent with benign follicular nodule with cystic change (Aubrey Category II). See comment. B. Fine needle aspiration, left mid to lower pole of thyroid nodule (smears): Benign, consistent with benign follicular nodule with cystic change (Aubrey Category II). See comment. AM:tabitha 02/17/2022 COMMENT A & B. The Aubrey System for thyroid diagnostic categorization was used in the evaluation of this case. The specimen is adequate for evaluation. CYTOLOGY STUDY Slides are reviewed. CYTOLOGY GROSS A - Received is 40 ml of red cloudy fluid labeled with the patient's name and and designated per the requisition as Left mid to lower pole thyroid nodule. Submitted for cytology preparation including cell block. B - Received are four smears labeled with the patient's name and designated per the requisition as Left mid to lower pole thyroid nodule. Submitted for staining. / tabitha 02/16/2022 TC:5 CPT: 24770 x2, 55255
== END | disposition home or self-care (01) ==
LOC: LABSPEC 14:46
PROVIDERS: PCP Internal Medicine; Visit Provider Surgery
DX: E04.1 Nontoxic single thyroid nodule (principal)
CPT/HCPCS: 88108; 88305; 88313

== ENCOUNTER → 2022-05-17 | Outpatient (CLI) | payer OTHER, SELFPAY ==
[2022-05-17 12:15] LABS: Absolute Lymphocyte Count 1.89 X10^3/uL (0.83-4.51); Absolute Neutrophil Count 2.7 X10^3/uL (2.0-7.7); Basophil# 0.04 X10^3/uL; Basophil% 0.7 % (0-1); Eosinophils% 5.6 % (0-5); Hematocrit 42.7 % (40-54); Hemoglobin 14.5 g/dL (13.0-16.5); Lymphocyte # 1.89 X10^3/ul (0.83-4.51); Mean Corpuscular Hgb 29.5 pg (27.0-32.0); Mean Platelet Vol. 10.3 fl (6.2-12.0); Monocyte# 0.44 X10^3/uL; Monocyte% 8.1 % (0-10); NRBC Flagged by Analyzer 0 % (0-5); Neutrophil # 2.72 X10^3/uL (2.7-7.7); Neutrophil % 50.4 % (47-70); Platelet Count 244 K/mm3 (150-450); RBC Distribution Width CV 12.4 % (11.6-14.6); RBC Distribution Width SD 39.6 fl (35.1-43.9); Red Blood Count 4.91 M/mm3 (4.6-6.2); White Blood Count 5.4 K/mm3 (4.4-11.0)
[2022-05-17 12:44] LABS: ALB/GLOB Ratio 1.3 RATIO (0.9-2.4); AST(SGOT) 17 U/L (15-37); Alanine Aminotransfer ALT/SGPT 31 U/L (16-61); Albumin, Serum 3.9 g/dL (3.2-5.0); Alkaline Phosphatase 73 U/L (45-117); Anion Gap 5 (5-15); BUN 15 mg/dL (7-18); BUN/Creat Ratio 20.2 RATIO (10-20); Calcium,Total 9.2 mg/dL (8.5-10.1); Chloride 106 mmol/L (98-107); Cholesterol 168 mg/dL (200); Creatinine, Serum 0.74 mg/dL (0.70-1.30); EST Glomerular Filtration Rate 113 mL/min (>60); Est Glom Filt Rate - Afr Amer 137 mL/min (>60); Glucose 103 mg/dL (74-106); High Density Lipoprotein 42 mg/dL; PSA,Total - Annual Screen 3.46 ng/mL (0.00-4.00); Potassium 3.9 mmol/L (3.5-5.1); Protein, Total 6.9 g/dL (6.4-8.2); Sodium Level 143 mmol/L (136-145); Triglycerides 105 mg/dL; Very Low Density Lipoprotein 21 mg/dL (5-40)
== END | disposition home or self-care (01) ==
LOC: BIMLAB 10:05
PROVIDERS: PCP Internal Medicine; Referring Provider Internal Medicine; Visit Provider Internal Medicine
DX: Z00.00 Encounter for general adult medical examination without abnormal findings (principal); Z12.5 Encounter for screening for malignant neoplasm of prostate
CPT/HCPCS: 36415; 80053; 80061; 84153; 85025; G0103

== ENCOUNTER → 2022-11-15 | Outpatient (CLI) | payer OTHER, SELFPAY ==
[2022-11-15 13:27] LABS: ALB/GLOB Ratio 1.4 RATIO (0.9-2.4); AST(SGOT) 17 U/L (15-37); Alanine Aminotransfer ALT/SGPT 32 U/L (16-61); Alkaline Phosphatase 76 U/L (45-117); Anion Gap 4 (5-15); BUN 16 mg/dL (7-18); BUN/Creat Ratio 20.5 RATIO (10-20); Calcium,Total 9.4 mg/dL (8.5-10.1); Chloride 107 mmol/L (98-107); Creatinine, Serum 0.78 mg/dL (0.70-1.30); EST Glomerular Filtration Rate 107 mL/min (>60); Est Glom Filt Rate - Afr Amer 129 mL/min (>60); Globulin 2.8 g/dL (2.2-4.2); Glucose 112 mg/dL (74-106); Potassium 3.7 mmol/L (3.5-5.1); Protein, Total 6.8 g/dL (6.4-8.2); Sodium Level 142 mmol/L (136-145)
== END | disposition home or self-care (01) ==
LOC: BIMLAB 08:39
PROVIDERS: PCP Internal Medicine; Referring Provider Internal Medicine; Visit Provider Internal Medicine
DX: I10 Essential (primary) hypertension (principal)
CPT/HCPCS: 36415; 80053

== ENCOUNTER → 2023-02-01 | Outpatient (CLI) | payer OTHER, SELFPAY ==
--- NOTE | 2023-02-01 12:49 | US_ITS ---
STUDY: THYROID ULTRASOUND REASON FOR EXAM: Male, 62 years old. yearly TECHNIQUE: Ultrasound evaluation of the thyroid was performed with real-time and static carbajal-scale imaging. COMPARISON: 01/31/2022. FINDINGS: RIGHT LOBE: The right lobe of the thyroid gland measures 4.9 x 2.0 x 1.8 cm. There is a homogeneous echotexture. Within the right thyroid lobe there are 2 nodules identified, one seen in the middle pole measuring 0.4 x 0.3 x 0.5 cm with possible minimal cystic changes and well delineated margins, unchanged in the interval. Second nodule identified within the lower pole with solid and cystic changes and well delineated margins, stable in the interval and measuring 1.0 x 0.6 x 0.6 cm. No new nodules are identified. LEFT LOBE: The left lobe of the thyroid gland measures 5.2 x 2.4 x 2.3 cm. There is a homogeneous echotexture. Within the left thyroid lobe at the level of the middle pole there is a 2.6 x 1.8 x 2.0 complex cystic structure with peripheral color flow and well delineated margins, stable in the interval. ISTHMUS: The isthmus measures 2.4 mm. The regional lymph nodes are normal. US/Thyroid IMPRESSION: Stable bilateral thyroid lobe nodules compatible with known multinodular goiter. No new nodules are seen. Electronically Signed: Lindsey Holland MD at 18:13 EDT ,
== END | disposition home or self-care (01) ==
LOC: US 12:47
PROVIDERS: PCP Internal Medicine; Referring Provider Surgery; Visit Provider Surgery
DX: E04.1 Nontoxic single thyroid nodule (principal)
CPT/HCPCS: 76536

== ENCOUNTER → 2023-05-24 | Outpatient (CLI) | payer OTHER, SELFPAY ==
--- OUTSIDE RECORDS SUMMARY | 2023-05-24 09:16 | XMS RPT_ITS | CCD ---
Author Name Unknown Address [facility] [place] [address] Organization [facility] Care Team Providers Care Manager Commercial Name Role Phone Margaux NAPOLES, Mae Miller Unavailable [phone] Allergies Allergy Classification Reported Allergen(s) Allergy Type Date of Onset Reaction(s) Facility (5 sources[facility] 01-19[facility]2017 [facility] Work Phone: Medications Completed/Discontinued Medications Medication Drug Class(es) Dates Sig (Normalized) Sig (Original) amLODIPine 5 mg oral tablet (3 sources) Dihydropyridine Calcium Channel Adelina Start: 02-07-20 17 take 1 tablet by mouth once daily AMLODIPINE BESYLATE 5 MG TABS 1 tab by mouth daily AMLODIPINE BESYLATE [id number] Edmond Wrightder POLICEMAN-C aspirin 81 mg delayed release oral tablet (2 sources) Nonsteroidal Anti-inflammatory Drug Start: 02-07-20 17 YESSICA ASPIRIN EC LOW DOSE 81 MG BANNER ASPIRIN [id number] Mae Damico MD clobetasol propionate 0.0005 mg/mg topical ointment (10 sources) Corticosteroid Start: 09-30-19 11 End: 01-20-20 CLOBETASOL PROPIONATE 0.05 % OINT apply twice daily for 3 weeks. Avoid face, groin, axilla CLOBETASOL PROPIONATE [id number] Mae Damico MD hydroCHLOROthiazide 25 mg oral tablet (5 sources) Thiazide Diuretic Start: 01-20-20 17 take 1 tablet by mouth once daily HYDROCHLOROTHIAZIDE 25 MG TABS One tablet by mouth daily HYDROCHLOROTHIAZIDE [id number] Mae Damico MD VALSARTAN-HYDROCHLOROT HIAZIDE TABS (10 sources) Thiazide Diuretic, Angiotensin 2 Receptor Adelina End: 01-20-20 DIOVAN HCT TABS VALSARTAN-HYDROCHLOROT HIAZIDE TABS [id number] Mae Damico MD Problems Active Problems Problem Classification Problem Date Documented Da te Episodic/Chronic Disorders of lipid metabolism (5 sources) Hyperlipidemia; Translations: [Hyperlipidemia, unspecified] 01-19-2017 Chronic Essential hypertension (5 sources) Hypertensive disorder; Translations: [Essential (primary) hypertension] 01-19-2017 Chronic Other nutritional; endocrine; and metabolic disorders (4 sources) Metabolic syndrome X; Translations: [Obesity] Onset: 02-06-2017 02-06-2017 Chronic Other nutritional; endocrine; and metabolic disorders (2 sources) Obesity; Translations: [Obesity, unspecified] Onset: 02-06-2017 02-06-2017 Chronic Past or Other Problems Problem Classification Problem Date Documented Date Episodic/Chronic Allergic reactions (5 sources) Dermatitis, unspecified; Translations: [Dermatitis, unspecified] Onset: 01-19-2017 01-19-2017 Episodic Diabetes mellitus without complication (3 sources) Impaired fasting glycaemia; Translations: [Impaired fasting glucose] Onset: 02-06-2017 02-06-2017 Episodic Other and unspecified benign neoplasm (5 sources) Other benign neoplasm of skin of trunk; Translations: [Other benign neoplasm of skin of trunk] 09-29-2010 Episodic Other skin disorders (8 sources) Disorder of nail; Translations: [Disorder of pigmentation, unspecified] Onset: 01-19-2017 01-19-2017 Episodic Other skin disorders (2 sources) Disorder of pigmentation, unspecified; Translations: [Disorder of pigmentation, unspecified] 10-20-2010 Episodic Unclassified (5 sources) Edema; Translations: [Localized edema] 09-29-2010 Episodic Varicose veins of lower extremity (10 sources) Stasis dermatitis; Translations: [Venous insufficiency (chronic) (peripheral)] 10-20-2010 Episodic Results Test Name Value Interpretation Reference Range Facil ity Vital Signs Date Time Vital Sign Value Performing Clinician Facility 02-06-2017 08:28-0400 BMI (Body Mass Index) 30.7 kg/m2 Mae Damico MD [facility] Work Phone: 02-06-2017 08:28-0400 Body Temperature 97 [degF] Mae Damico MD [facility] Work Phone: 02-06-2017 08:28-0400 BP Diastolic 102 mm[Hg] Mae Damico MD [facility] Work Phone: 02-06-2017 08:28-0400 BP Systolic 155 mm[Hg] Mae Damico MD [facility] Work Phone: 02-06-2017 08:28-0400 Height 177.8 cm Mae Damico MD [facility] Work Phone: 02-06-2017 08:28-0400 Pulse (Heart Rate) 81 /min Mae Damico MD [facility] Work Phone: 02-06-2017 08:28-0400 Respiratory Rate 16 /min Mae Damico MD [facility] Work Phone: 02-06-2017 08:28-0400 Weight 97.07 kg Mae Damico MD [facility] Work Phone: 01-19-2017 08:58-0400 BMI (Body Mass Index) 30.73 kg/m2 Mae Damico MD [facility] Work Phone: 01-19-2017 08:58-0400 Body Temperature 97.4 [degF] Mae Damico MD [facility] Work Phone: 01-19-2017 08:58-0400 BP Diastolic 100 mm[Hg] Mae Damico MD [facility] Work Phone: 01-19-2017 08:58-0400 BP Systolic 140 mm[Hg] Mae Damico MD [facility] Work Phone: 01-19-2017 08:58-0400 Height 177.8 cm Mae Damico MD [facility] Work Phone: 01-19-2017 08:58-0400 Pulse (Heart Rate) 74 /min Mae Damico MD [facility] Work Phone: 01-19-2017 08:58-0400 Respiratory Rate 16 /min Mae Damico MD [facility] Work Phone: 01-19-2017 08:58-0400 Weight 97.16 kg Mae Damico MD [facility] Work Phone: Procedures Date Procedure Procedure Detail Performing Clinician Start: 02-06-2017 End: 02-06-2017 *BMP Mae King Work Phone: Start: 02-06-2017 End: 02-06-2017 Hemoglobin A1c/Hemoglobin.total in Blood Mae Damico MD Work Phone: Plan of Treatment Date Care Activity Detail Author Start: 04-20-2017 End: 04-20-2017 Appointment Appointment [facility] Work Phone: Start: 02-06-2017 End: 02-06-2017 *BMP *BMP [facility] Work Phone: Start: 02-06-2017 End: 02-06-2017 Hemoglobin A1c/Hemoglobin.total mass fraction (Bld) *HgA1C [facility] Work Phone: Start: 02-06-2017 End: 02-06-2017 WhyWeight WhyWeight [facility] Services, [address] [place] [address] [place], [address] [facility] Work Phone: Start: 02-06-2017 End: 02-06-2017 Appointment Appointment [facility] Work Phone: Start: 01-19-2017 End: 01-19-2017 Follow Up Appt 3 months Follow Up Appt 3 months [facility] Work Phone: Start: 01-19-2017 End: 01-19-2017 Podiatry Referral Podiatry Referral [place], [facility], [address] [place], [address] [facility] Work Phone: Start: 01-19-2017 End: 01-19-2017 Appointment Appointment [facility] Work Phone: Start: 01-19-2017 End: 01-19-2017 Follow Up Appt 3 months Follow Up Appt 3 months [facility] Work Phone: Start: 01-19-2017 End: 01-19-2017 Podiatry Referral Podiatry Referral [place] [facility], [facility], [address] [place] [address], [id number] [facility] Work Phone: Summary Purpose Family History No Family History Records FoundNo Family History Records Found Advance Directives No Advanced Directives Records FoundNo Advanced Directives Records Found Hospital Course Note HNO ID: [id number] Author: Paul Reece) Keisha Service: Psychiatry Author Type: Psychiatrist Type: Discharge Summary Filed: 04/14/2019 10:36 AM Note Text: DISCHARGE SUMMARY BEHAVIORAL HEALTH PATIENT NAME: Naren Turner ADMISSION DATE: 04/09/2019 DISCHARGE DATE: 04/14/2019 ATTENDING PHYSICIAN: Dylan Valdes Code Status: Not on file Highest Readmission Risk Score: 13 The 30 day readmissions risk score is derived from an internally validated risk model which evaluates patient level characteristics, utilization history, medication orders and lab results up until the day of discharge. Patients with a score of 40 or above are considered highest risk for readmission. Specific patient level drivers will be listed at the bottom of the summary. REASON FOR HOSPITALIZATION: Risk of physical harm to self DISCHARGE DIAGNOSIS: 1. PRIMARY: Mood Disorder Major Depressive Disorder, Recurrent, Severe Without Psychotic Symptoms GAF: 55 -60-51 Moderate symptoms or moderate difficulty in so (more content not included)... Additional Source Comments (unrecognized sect ion and content) No Status Records FoundNo Status Records Found INFORMATION SOURCE (unrecogn ized section and content) DATE CREATED AUTHOR AUTHOR'S ORGANIZ ATION 04/15/2019 [facility] FOR RECORDS PERTAINING TO PATIENTS WHO ARE OR HAVE BEEN ENROLLED IN A CHEMICAL DEPENDENCY/SUBSTANCEABUSE PROGRAM, SOME INFORMATION MAY BE OMITTED. This clinical summary was aggregated from multiple sources. Caution should be exercised in using it in the provision of clinical care. This summary normalizes information from multiple sources, and as a consequence, information in this document may materially change the coding, format and clinical context of patient data. In addition, data may be omitted in some cases. CLINICAL DECISIONS SHOULD BE BASED ON THE PRIMARY CLINICAL RECORDS. [facility] [place] [facility]. provides no warranty or guarantee of the accuracy or completeness of information in this document.
[2023-05-24 12:13] LABS: Absolute Neutrophil Count 3.6 X10^3/uL (2.0-7.7); Basophil# 0.05 X10^3/uL; Basophil% 0.8 % (0-1); Eosinophil# 0.26 X10^3/uL; Hematocrit 45.8 % (40-54); Mean Corp Hgb Conc 32.8 g/dL (32-36); Mean Corpuscular Hgb 28.8 pg (27.0-32.0); Mean Corpuscular Volume 87.9 fL (80-94); Mean Platelet Vol. 9.7 fl (6.2-12.0); Monocyte# 0.57 X10^3/uL; Monocyte% 8.7 % (0-10); NRBC Flagged by Analyzer 0 % (0-5); Neutrophil # 3.56 X10^3/uL (2.7-7.7); Platelet Count 306 K/mm3 (150-450); RBC Distribution Width CV 12.2 % (11.6-14.6); RBC Distribution Width SD 39.3 fl (35.1-43.9); Red Blood Count 5.21 M/mm3 (4.6-6.2); White Blood Count 6.6 K/mm3 (4.4-11.0)
[2023-05-24 12:46] LABS: ALB/GLOB Ratio 1.2 RATIO (0.9-2.4); AST(SGOT) 20 U/L (15-37); Alanine Aminotransfer ALT/SGPT 36 U/L (16-61); Albumin, Serum 3.9 g/dL (3.2-5.0); Alkaline Phosphatase 71 U/L (45-117); Anion Gap 2 (5-15); BUN 15 mg/dL (7-18); BUN/Creat Ratio 20.7 RATIO (10-20); Calcium,Total 9.2 mg/dL (8.5-10.1); Chloride 103 mmol/L (98-107); Cholesterol 164 mg/dL (200); Creatinine, Serum 0.72 mg/dL (0.70-1.30); EST Glomerular Filtration Rate 116 mL/min (>60); Est Glom Filt Rate - Afr Amer 141 mL/min (>60); Globulin 3.2 g/dL (2.2-4.2); Glucose 97 mg/dL (74-106); High Density Lipoprotein 42 mg/dL; PSA,Total - Annual Screen 3.83 ng/mL (0.00-4.00); Potassium 3.5 mmol/L (3.5-5.1); Protein, Total 7.1 g/dL (6.4-8.2); Sodium Level 137 mmol/L (136-145); Triglycerides 125 mg/dL; Very Low Density Lipoprotein 25 mg/dL (5-40)
== END | disposition home or self-care (01) ==
LOC: BIMLAB 08:37
PROVIDERS: PCP Internal Medicine; Referring Provider Internal Medicine; Visit Provider Internal Medicine
DX: Z00.00 Encounter for general adult medical examination without abnormal findings (principal)
CPT/HCPCS: 36415; 80053; 80061; 84153; 85025; G0103

== ENCOUNTER → 2023-11-26 | Outpatient (CLI) | payer OTHER, SELFPAY ==
[2023-11-26 20:50] LABS: Anion Gap 5 (5-15); BUN 21 mg/dL (7-18); BUN/Creat Ratio 24.3 RATIO (10-20); Calcium,Total 9.1 mg/dL (8.5-10.1); Chloride 105 mmol/L (98-107); Creatinine, Serum 0.86 mg/dL (0.70-1.30); EST Glomerular Filtration Rate 95 mL/min (>60); Est Glom Filt Rate - Afr Amer 115 mL/min (>60); Glucose 148 mg/dL (74-106); Potassium 3.9 mmol/L (3.5-5.1); Sodium Level 142 mmol/L (136-145)
[2023-11-27 14:17] LABS: Hemoglobin A1c 5.4 % (3.8-5.6)
== END | disposition home or self-care (01) ==
PROVIDERS: PCP Internal Medicine; Referring Provider Internal Medicine; Visit Provider Internal Medicine
DX: I10 Essential (primary) hypertension (principal); R73.9 Hyperglycemia, unspecified
CPT/HCPCS: 36415; 80048; 83036

== ENCOUNTER → 2024-08-04 | Outpatient (CLI) | payer OTHER, SELFPAY ==
[2024-08-04 08:41] LABS: Bacteria 0 SEEN /hpf (None Seen); Mucous, Urine 0 SEEN /hpf (<or=2+); Red Blood Cells-Urine 0 SEEN /hpf (0-5); Squamous Epithelial Cells - UA 0 SEEN /hpf (0-5); White Blood Cells 0 SEEN /hpf (0-5)
[2024-08-04 12:40] LABS: Absolute Neutrophil Count 4.9 X10^3/uL (2.0-7.7); Basophil# 0.05 X10^3/uL; Basophil% 0.6 % (0-1); Eosinophil# 0.28 X10^3/uL; Eosinophils% 3.5 % (0-5); Lymphocyte % 26.6 % (19-41); Mean Corpuscular Hgb 29.3 pg (27.0-32.0); Mean Corpuscular Volume 86.1 fL (80-94); Mean Platelet Vol. 10.1 fl (6.2-12.0); Monocyte# 0.57 X10^3/uL; Monocyte% 7.2 % (0-10); NRBC Flagged by Analyzer 0 % (0-5); Neutrophil # 4.88 X10^3/uL (2.7-7.7); Neutrophil % 61.8 % (47-70); Platelet Count 277 K/mm3 (150-450); RBC Distribution Width CV 12.3 % (11.6-14.6); RBC Distribution Width SD 38.2 fl (35.1-43.9); Red Blood Count 5.46 M/mm3 (4.6-6.2); White Blood Count 7.9 K/mm3 (4.4-11.0)
[2024-08-04 12:47] LABS: Color, Urine Yellow (Yellow); Glucose, Dipstick Normal (Normal); Ketone-Dipstick Negative (Negative); Leukocyte Esterase-Dipstick Negative /ul (Negative); Nitrite-Dipstick Negative (Negative); Occult Blood-Urine Negative /ul (Negative); Protein-Dipstick 30 mg/dl (Negative); Urine Bilirubin Dipstick Negative (Negative); Urine Clarity Clear (Clear); Urine Urobilinogen Normal (Normal)
[2024-08-04 13:10] LABS: Cholesterol 194 mg/dL (<=200); High Density Lipoprotein 50 mg/dL; Low Density Lipoprotein Calc. 117 mg/dL; Triglycerides 134 mg/dL; Very Low Density Lipoprotein 27 mg/dL (5-40)
[2024-08-04 13:12] LABS: ALB/GLOB Ratio 1.8 RATIO (0.9-2.4); AST(SGOT) 24 U/L (<=37); Alanine Aminotransfer ALT/SGPT 34 U/L (<=46); Albumin, Serum 4.7 g/dL (3.4-4.8); Alkaline Phosphatase 81 U/L (40-129); Anion Gap 10 (5-15); BUN 13 mg/dL (4-19); BUN/Creat Ratio 16.3 RATIO (10-20); Calcium,Total 9.9 mg/dL (7.6-11.0); Carbon Dioxide 30.9 mmol/L (21.0-32.0); Chloride 102 mmol/L (98-108); Creatinine, Serum 0.81 mg/dL (0.70-1.20); EST Glomerular Filtration Rate 98 (>60); Globulin 2.7 g/dL (2.2-4.2); Glucose 111 mg/dL (70-99); Potassium 3.8 mmol/L (3.3-5.1); Protein, Total 7.3 g/dL (5.9-8.4); Sodium Level 143 mmol/L (133-145); Total Bilirubin 0.55 mg/dL (0.00-1.30)
[2024-08-04 17:10] LABS: Hemoglobin A1c 5.7 % (<=5.6)
== END | disposition home or self-care (01) ==
LOC: BIMLAB 08:02
PROVIDERS: PCP Internal Medicine; Referring Provider Internal Medicine; Visit Provider Internal Medicine
DX: Z00.00 Encounter for general adult medical examination without abnormal findings (principal); R73.9 Hyperglycemia, unspecified
CPT/HCPCS: 36415; 80053; 80061; 81001; 83036; 84153; 85025; G0103

== ENCOUNTER 2025-02-11 08:13 | Day surgery (SDC) | payer OTHER, SELFPAY ==
--- NOTE | 2025-02-10 09:22 | PAT.ANE_ITS ---
Pre-Assessment Diagnosis/Proposed Procedure Planned Operative Procedure(s): COLONOSCOPY-OA Anesthesia History Anesthesia History - press tender incendiary grenade: Anesthesia History - press tender incendiary grenade Hx Hospitalization No 02/10/25 09:05 Any Problems With Anesthesia No 02/10/25 09:05 Cholinesterase deficiency No 02/10/25 09:05 You/Your Family Experience No 02/10/25 09:05 fever (hyperthermia) with Relationship Recent Exposure to Contagious No 07/13/21 08:34 Disease Does patient have nerve No 02/10/25 09:05 stimulator Patient instructed to have device shut off --Does patient have Pacemaker or ICD? When Was Last Pacemaker Check QUESTION #4 FULL TEXT: You/Your Family Experience fever (hyperthermia) with Anesthesia Last Oral Intake Last Oral intake: Last Oral Intake NPO since Meds taken in AM with sips of water? 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 - press tender incendiary grenade: PONV - press tender incendiary grenade Female No 02/10/25 09:05 HX of Motion Sickness No 02/10/25 09:05 HX of N/V After Surgery No 02/10/25 09:05 Non-Smoker Yes 02/10/25 09:05 Duration of Surgery greater No 02/10/25 09:05 than 60 minutes Number of Risk Factors 1 02/10/25 09:05 PONV Score Low Risk 02/10/25 09:05 Height & Weight Height & Weight: Anesthesia: Height & Weight Height 5 ft 10 in 01/28/25 14:34 Respiratory Assessment Respiratory Assessment - press tender incendiary grenade: Respiratory Tract Infection Hx - press tender incendiary grenade Hx Respiratory Tract Infection No 02/10/25 09:05 STOP Sleep Apnea STOP Sleep Apnea - press tender incendiary grenade: STOP Sleep Apnea - press tender incendiary grenade Hx Hypertension Yes: per pt, controlled on 02/10/25 09:05 meds Hx Sleep Apnea No 02/10/25 09:05 CPAP BIPAP Do you snore loudly (louder No 02/10/25 09:05 than talking or can be heard Do you often feel tired/ No 02/10/25 09:05 fatigued/ sleepy during daytime? Has anyone observed you stop No 02/10/25 09:05 breathing during sleep? STOP Results Negative 02/10/25 09:05 QUESTION #5 FULL TEXT : Do you snore loudly (louder than talking or can be heard through closed doors)? 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 Specify any problems Hx of Preganancy in last 3 N/A 02/10/25 09:05 Months Nurse Filling Out Transfusion VCHRISTIN 02/10/25 09:05 & Questions: Date: 02/10/25 02/10/25 09:05 Time: 09:06 02/10/25 09:05 Patient unable to answer at this time (ie. confused, unrespo /Reproduction History /Reproductive History - press tender incendiary grenade: /Reproductive Hx- press tender incendiary grenade Hx Now No 02/10/25 09:05 Gestational Age (in weeks): EDC: Hx Hx Para Hx Section SAB No 02/10/25 09:05 PFSH Medical History (Updated 02/10/25 @ 09:05 by Chantelle Malave) Arthritis Kidney stone High cholesterol Injury of head and neck Gastric reflux History of edema Health care maintenance Stasis dermatitis Bilateral lower extremity edema Blood glucose elevated Preventative health care Thyroid nodule Left ankle pain Left knee pain Toenail fungus Wears glasses Wears partial dentures Alcohol use Back pain Former smoker Leg cramps Encounter for preventative adult health care examination Varicose veins of left leg with edema Depression Piriformis syndrome of right side Major depressive disorder, recurrent severe without psychotic features Metabolic syndrome Obesity Hyperlipemia GERD (gastroesophageal reflux disease) Hypertension Home Medications ?Medication ?Instructions ?Recorded ?Last Taken ?Type multivitamin 1 cap PO DAILY 06/27/19 Unkn own History ascorbic acid (vitamin C) 1,000 mg 1 g PO DAILY Unknown History tablet turmeric 400 mg capsule 400 mg PO DAILY 07/11/21 Unk nown History ascorbic acid 30 mg-collagen, 1 tab PO DAILY 08/23/23 Unknown History hydrolyzed 833.3 mg tablet (Collagen Skin Renewal) magnesium chloride 64 mg 64 mg PO QHS 08/23/23 Unknow n History (magnesium chloride) tablet,delayed release hydrochlorothiazide 25 mg tablet See Rx Instructions . Route Q OTHER 08/05/24 Unknown Rx DAY #90 tabs omeprazole 20 mg capsule,delayed 20 mg PO QDAY PRN JESUS D #90 caps 08/05/24 Unknown Rx release potassium chloride 10 mEq 10 meq PO .qod #90 tabs 07/22 10/15 Unknown Rx tablet,extended release amlodipine 10 mg tablet 10 mg PO QDAY #90 tabs 01/28 Unknown Rx bupropion HCl 150 mg 24 hr tablet, 150 mg PO DAILY #90 tabs 01/28/25 Unknown Rx extended release losartan 100 mg tablet 100 mg PO QDAY #90 tabs 12/15 Unknown Rx simvastatin 20 mg tablet 20 mg PO QPM #90 tabs Unknown Rx Lactobacillus acidophilus 10 100 mmu cells PO DAILY Unknown History billion cell capsule (Probacap) cholecalciferol (vitamin D3) 25 25 mcg PO DAILY Unknown History mcg (1,000 unit) capsule (Vitamin D3) Allergy/AdvReac Type Severity Reaction Status Date / Time lisinopril Allergy Mild Cough Verified 02/10/25 08:52 Family History Father Cancer liver and prostate Grandmother Cancer lung Surgical History (Updated 02/10/25 @ 09:05 by Chantelle Malave) vascular ablasion Normal colonoscopy Social History Smoking Status: Former smoker Tobacco: How many years used: 29 how long ago did patient quit smokin alcohol intake: current alcohol intake frequency: a few times a month Alcohol type: beer substance use type: does not use what type of physical activity do you participate in: aerobics frequency: daily Audit: Pertinent Findings Pertinent Findings EKG Perinent findings: 04/22/2020. Normal sinus rhythm. Left axis deviation. Recommendation Anesthesia Recommendation Anesthesia recommendation: OPTIMIZED for anesthesia
[2025-02-11 08:32] VITALS: BP 150/88; PULSE 81; RESP 16; TEMP 36.6; O2SAT 97; BMI 29.2
--- NOTE | 2025-02-11 08:35 | PRE.ANES_ITS ---
ASA Classification* ASA Classification ASA Classification: 2 Assessment & Plan Anesthesia* Anesthesia Assessment Anesthesia Assessment: Discussed sedation and/or anesthesia options, risks, benefits, and alternatives with patient/parents/legal guardian/POA. Questions invited. The patient/parents/legal guardian/POA seems to understand and agrees to proceed with anesthesia plan. Reviewed the physical assessment, medical history, allergy history and patient home medications list prior to surgery/procedure/anesthetic and documented any changes. Performed airway and anesthesia risk assessments. Anesthesia Type Anesthesia Type: MAC Anesthesia Focused Assessment* Airway Assessment Mouth opens: >3 cm Mallampati Score: II Labs Anesthesia Preop lab: CBC WBC, (4.4-11.0) 7.9 K/mm3 08/04/24, 08:02 RBC, (4.6-6.2) 5.46 M/mm3 08/04/24, 08:02 Hgb, (13.0-16.5) 16.0 g/dL 08/04/24, 08:02 Hct, (40-54) 47.0 % 08/04/24, 08:02 Plt Count, (150-450) 277 K/mm3 08/04/24, 08:02 CHEMISTRY Potassium, (3.3-5.1) 3.8 mmol/L 08/04/24, 08:02 Sodium, (133-145) 143 mmol/L 08/04/24, 08:02 Magnesium, (1.6-2.6) 2.1 mg/dL 01/29/18, 07:15 BUN, (4-19) 13 mg/dL 08/04/24, 08:02 Creatinine, (0.70-1.20) 0.81 mg/dL 08/04/24, 08:02 Glucose, (70-99) 111 mg/dL H 08/04/24, 08:02 TSH, (0.358-3.74) 1.10 uIU/mL 01/25/22, 11:07 COAG PT, (11.7-14.9) 13.7 SECONDS 01/24/22, 07:20 Pre-Assessment Diagnosis/Proposed Procedure Planned Operative Procedure(s): COLONOSCOPY-OA Anesthesia History 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 When Was Last Pacemaker Check QUESTION #4 FULL TEXT: You/Your Family Experience fever (hyperthermia) with Anesthesia Last Oral Intake Last Oral intake: Last Oral Intake NPO since Meds taken in AM with sips of water? 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 Female No 02/10/25 09:05 HX of Motion Sickness No 02/10/25 09:05 HX of N/V After Surgery No 02/10/25 09:05 Non-Smoker Yes 02/10/25 09:05 Duration of Surgery greater No 02/10/25 09:05 than 60 minutes Number of Risk Factors 1 02/10/25 09:05 PONV Score Low Risk 02/10/25 09:05 Height & Weight Height & Weight: Anesthesia: Height & Weight Height 5 ft 10 in 01/28/25 14:34 Respiratory Assessment Respiratory Assessment - speech communication professor: Respiratory Tract Infection Hx - speech communication professor Hx Respiratory Tract Infection No 02/10/25 09:05 STOP Sleep Apnea STOP Sleep Apnea - speech communication professor: STOP Sleep Apnea - speech communication professor Hx Hypertension Yes: per pt, controlled on 02/10/25 09:05 meds Hx Sleep Apnea No 02/10/25 09:05 CPAP BIPAP Do you snore loudly (louder No 02/10/25 09:05 than talking or can be heard Do you often feel tired/ No 02/10/25 09:05 fatigued/ sleepy during daytime? Has anyone observed you stop No 02/10/25 09:05 breathing during sleep? STOP Results Negative 02/10/25 09:05 QUESTION #5 FULL TEXT : Do you snore loudly (louder than talking or can be heard through closed doors)? 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 Specify any problems Hx of Preganancy in last 3 N/A 02/10/25 09:05 Months Nurse Filling Out Transfusion VCHRISTIN 02/10/25 09:05 & Questions: Date: 02/10/25 02/10/25 09:05 Time: 09:06 02/10/25 09:05 Patient unable to answer at this time (ie. confused, unrespo /Reproduction History /Reproductive History - speech communication professor: /Reproductive Hx- speech communication professor Hx Now No 02/10/25 09:05 Gestational Age (in weeks): EDC: Hx Hx Para Hx Section SAB No 02/10/25 09:05 Active Medications Active Medications: Current Medications Generic Name Dose Route Start Last Admin Trade Name Freq PRN Reason Stop Dose Admin Lactated Ringer's 1,000 mls @ 15 mls/hr 02/11/25 08:30 IV .Q48H ROSELYN PFSH Medical History Arthritis Kidney stone High cholesterol Injury of head and neck Gastric reflux History of edema Health care maintenance Stasis dermatitis Bilateral lower extremity edema Blood glucose elevated Preventative health care Thyroid nodule Left ankle pain Left knee pain Toenail fungus Wears glasses Wears partial dentures Alcohol use Back pain Former smoker Leg cramps Encounter for preventative adult health care examination Varicose veins of left leg with edema Depression Piriformis syndrome of right side Major depressive disorder, recurrent severe without psychotic features Metabolic syndrome Obesity Hyperlipemia GERD (gastroesophageal reflux disease) Hypertension Home Medications ?Medication ?Instructions ?Recorded ?Last Taken ?Type multivitamin 1 cap PO DAILY 06/27/19 Unkn own History ascorbic acid (vitamin C) 1,000 mg 1 g PO DAILY Unknown History tablet turmeric 400 mg capsule 400 mg PO DAILY 07/11/21 Unk nown History ascorbic acid 30 mg-collagen, 1 tab PO DAILY 08/23/23 Unknown History hydrolyzed 833.3 mg tablet (Collagen Skin Renewal) magnesium chloride 64 mg 64 mg PO QHS 08/23/23 Unknow n History (magnesium chloride) tablet,delayed release hydrochlorothiazide 25 mg tablet See Rx Instructions . Route Q OTHER 08/05/24 Unknown Rx DAY #90 tabs omeprazole 20 mg capsule,delayed 20 mg PO QDAY PRN JESUS D #90 caps 08/05/24 Unknown Rx release potassium chloride 10 mEq 10 meq PO .qod #90 tabs 07/22 10/15 Unknown Rx tablet,extended release amlodipine 10 mg tablet 10 mg PO QDAY #90 tabs 01/28 Unknown Rx bupropion HCl 150 mg 24 hr tablet, 150 mg PO DAILY #90 tabs 01/28/25 Unknown Rx extended release losartan 100 mg tablet 100 mg PO QDAY #90 tabs 12/15 Unknown Rx simvastatin 20 mg tablet 20 mg PO QPM #90 tabs Unknown Rx Lactobacillus acidophilus 10 100 mmu cells PO DAILY Unknown History billion cell capsule (Probacap) cholecalciferol (vitamin D3) 25 25 mcg PO DAILY Unknown History mcg (1,000 unit) capsule (Vitamin D3) Allergy/AdvReac Type Severity Reaction Status Date / Time lisinopril Allergy Mild Cough Verified 02/10/25 08:52 Family History Father Cancer liver and prostate Grandmother Cancer lung Surgical History vascular ablasion Normal colonoscopy Social History Smoking Status: Former smoker Tobacco: How many years used: 29 how long ago did patient quit smokin alcohol intake: current alcohol intake frequency: a few times a month Alcohol type: beer substance use type: does not use what type of physical activity do you participate in: aerobics frequency: daily Review of Systems (Anesthesia) ROS Narrative System reviewed and no additional complaints, except as documented.
[2025-02-11] MEDS: Lactated Ringers 1,000 ML 15 ML IV (08:39)
--- NOTE | 2025-02-11 09:36 | H&P.OPEN ---
HPI - General General Date of Service: 02/11/25 HPI Narrative DALE MERCEDES, is a 64 M who presents for screening colonoscopy due to a history of colon polyps and family history of colon cancer in his dad diagnosed at age 63. Patient has bowel moods daily denies any blood. Patient denies any chronic abdominal pain/nausea/vomiting/reflux. Patient last colonoscopy was June 2021 [facility] Medical History Arthritis Kidney stone High cholesterol Injury of head and neck Gastric reflux History of edema Health care maintenance Stasis dermatitis Bilateral lower extremity edema Blood glucose elevated Preventative health care Thyroid nodule Left ankle pain Left knee pain Toenail fungus Wears glasses Wears partial dentures Alcohol use Back pain Former smoker Leg cramps Encounter for preventative adult health care examination Varicose veins of left leg with edema Depression Piriformis syndrome of right side Major depressive disorder, recurrent severe without psychotic features Metabolic syndrome Obesity Hyperlipemia GERD (gastroesophageal reflux disease) Hypertension Home Medications ?Medication ?Instructions ?Recorded ?Last Taken ?Type multivitamin 1 cap PO DAILY 06/27/19 Unknown History ascorbic acid (vitamin C) 1,000 mg 1 g PO DAILY 05/07/20 Unknown History tablet turmeric 400 mg capsule 400 mg PO DAILY 07/11/21 Unknown History ascorbic acid 30 mg-collagen, 1 tab PO DAILY 08/23/23 Unknown History hydrolyzed 833.3 mg tablet (Collagen Skin Renewal) magnesium chloride 64 mg 64 mg PO QHS 08/23/23 Unknown History (magnesium chloride) tablet,delayed release hydrochlorothiazide 25 mg tablet See Rx Instructions .Route Q OTHER 08/05/24 Unknown Rx DAY #90 tabs omeprazole 20 mg capsule,delayed 20 mg PO QDAY PRN GERD #90 caps 08/05/24 Unknown Rx release potassium chloride 10 mEq 10 meq PO .qod #90 tabs 08/06/24 Unknown Rx tablet,extended release amlodipine 10 mg tablet 10 mg PO QDAY #90 tabs 01/28/25 Unknown Rx bupropion HCl 150 mg 24 hr tablet, 150 mg PO DAILY #90 tabs 01/28/25 Unknown Rx extended release losartan 100 mg tablet 100 mg PO QDAY #90 tabs 01/28/25 Unknown Rx simvastatin 20 mg tablet 20 mg PO QPM #90 tabs 01/28/25 Unknown Rx Lactobacillus acidophilus 10 100 mmu cells PO DAILY 02/10/25 Unknown History billion cell capsule (Probacap) cholecalciferol (vitamin D3) 25 25 mcg PO DAILY 02/10/25 Unknown History mcg (1,000 unit) capsule (Vitamin D3) Allergy/AdvReac Type Severity Reaction Status Date / Time lisinopril Allergy Mild Cough Verified 02/10/25 08:52 Family History Father Cancer liver and prostate Grandmother Cancer lung Surgical History vascular ablasion Normal colonoscopy Social History Smoking Status: Former smoker Tobacco: How many years used: 29 how long ago did patient quit smokin alcohol intake: current alcohol intake frequency: a few times a month Alcohol type: beer substance use type: does not use what type of physical activity do you participate in: aerobics frequency: daily Past Medical/Surgical History Planned Operation Planned Operative Procedure(s): COLONOSCOPY-OA Previous Hospitalizations/Surgeries HX Hospitalizations: No Any Problems With Anesthesia: No You/Your Family Experience Fever (Hyperthermia) With Anes: No Cholinesterase deficiency: No Cardiovascular Hx of Irregular Heartbeat and/or Afib: No Hx Heart Attack: No Hx Congestive Heart Failure: No Hx Hypertension: Yes (per pt, controlled on meds) Hx Pacemaker: No Respiratory Hx Chronic Obstructive Pulmonary Disease (COPD): No Hx Asthma: No Hx Emphysema: No Hx Sleep Apnea: No Hx Respiratory Tract Infection/Cold (presently): No Do You Snore Loudly (louder than talking or can be heard): No Do You Often Feel Tired/ Fatigued/ Sleepy Dring Daytime?: No Has Anyone Observed You Stop Breathing During Sleep?: No Result (for STOP score): Negative Smoking Status: Former smoker Gastrointestinal Controlled With Meds: Yes Hx Ulcer: No Special diet followed at home: No Neurological Hx Seizures: No Hx Head/Neck Injury: Yes Hx Headaches: No Hx Back Injury/Pain: No Does patient have nerve stimulator: No Blood Disorder Hx Anemia: No Reproduction : No Genitourinary Hx Renal Disease: No Hx Dialysis: No Musculoskeletal Hx Arthritis: No Hx Rheumatoid Arthritis: No Endocrine Hx Diabetes: No Psycho/Social Hx Depression: Yes Miscellaneous Hx Cancer: No Recent Exposure to Contagious Disease: No Allergies lisinopril Allergy (Mild, Verified 02/10/25 08:52) Cough Discharge Is Pt Admitted From a Skilled Nursing, or a Fdc: No After D/C, Where Do you Plan to Go: Return Home From the PAT History Number of Risk Factors: 1 Vital Signs Vital Signs Vital Signs: 02/11/25 08:32 02/11/25 08:32 Temperature 97.9 F Temperature Source Temporal Pulse Rate 81 Respiratory Rate 16 Respiratory Pattern Normal Blood Pressure 150/88 H Blood Pressure Mean 108 Blood Pressure Source Monitor Blood Pressure Position Sitting Blood Pressure Location Left Arm Pulse Ox 97 Oxygen Delivery Method Room Air Weight Weight: 207 lb 3.752 oz Body Mass Index (BMI) 29.2 Physical Exam Const alert, oriented x3 and no apparent distress HEENT normocephalic and head/scalp atraumatic Resp normal respiratory effort Cardio regular rate GI soft to palpation and non-tender; Negative for non-distended Palpation: Negative for guarding Extremity no clubbing, cyanosis or edema Skin no rashes or lesions noted Neuro CN's II-XII intact bilaterally Psych mental status grossly normal Assessment & Plan Assessment/Plan (1) Hx of colonic polyps: (2) Family history of colon cancer in father: Surgery Risks - Colonoscopy I discussed with the patient the risks of the procedure: Yes Risks Include but are not Limited To: Risks include but are not limited to: Bleeding, perforation requiring further surgery, inability to complete colonoscopy requiring barium enema.
--- NOTE | 2025-02-11 09:45 | COLBX_PTH ---
PATIENT: DALE MERCEDES LOC: EN U#:[id number] AGE/SX: 64/M ROOM: RE02/11/[address]: Dr. Rosa Isela Cox MD : 1960 BED: DIS: 02/11/2025 SPEC #: [id number] RECD: 02/11/25 11:29 STATUS: JAMI REArlen #: [id number] ADRIAN: 02/11/25 09:[address]: Rosa Isela Cox DEPT: SURGICAL PATHOLOGY RECD BY: Fidel Mcintyre ENTERED: 02/11/25 13:29 SP TYPE: COLON BX OTHR DR: Dr. Mae Damico MD Tissues: A - Descending colon Procedures: Surgery Specimen Level IV HEADER OPERATION: Colonoscopy, polypectomy PRE-OP DIAGNOSIS: History of colonic polyps, family history of colon cancer in father TISSUE SUBMITTED: A- Descending polyp MICROSCOPIC DIAGNOSIS A. Large intestine, descending polyp, biopsy: * Tubular adenoma MICROSCOPIC DESCRIPTION Slides are reviewed. GROSS DESCRIPTION A. Received in fixative is one container labeled with the patient's name and designated Descending polyp. The specimen consists of one irregular fragment of meza tissue that measures 0.4 cm. The resection margin is inked green. The specimen is totally submitted in one cassette. ME 02/11/2025 CPT:[id number]
[2025-02-11 10:50] VITALS: BP 117/74; BP 150/88; PULSE 70; RESP 16; TEMP 36.3; O2SAT 98
[2025-02-11 10:55] VITALS: BP 118/67; BP 150/88; PULSE 70; RESP 16; O2SAT 98
--- NOTE | 2025-02-11 10:55 | PCM.POST.ANE ---
Anesthesia: Postop Eval I Current Vital Signs Temperature: 97.3 F Pulse Rate: 74 Blood Pressure: 117/74 Respiratory Rate: 16 Pulse Ox: 100 Oxygen Delivery Method: Room Air Assessment Airway patent: Yes Spontaneous unlabored respirations: Yes Mental status: Awake and Calm nausea: No Vomiting: No Anesthesia Complication: No Fluid Hydration Crystalloid volume administer (ml): 600 Total IV fluid infused: 600 Progress Note Anesthesia document: Postop Eval 1 completed: Yes
[2025-02-11 10:56] VITALS: BP 117/74; PULSE 74; RESP 16; TEMP 36.3; O2SAT 100
--- NOTE | 2025-02-11 10:57 | OP.PROVAT_ITS ---
02/11/2025 Mae Damico MD [address] [place] [address] [place] [address] Re : Colonoscopy procedure for Naren Turner Dear Dr. Damico This procedure was performed on Tuesday, February 11, 2025. My impressions and recommendations are as follows: Impressions : - One less than 5 mm polyp in the descending colon, removed with a hot snare. Resected and retrieved. - The entire examined colon is normal on direct and retroflexion views. Recommendations : - Discharge patient to home. - Resume previous diet. - Continue present medications. - Await pathology results. - Repeat colonoscopy in 3 years for surveillance based on pathology results. My findings are described in the full procedure note, which is enclosed. If I can be of further assistance, please feel free to contact me at Doctor phone number(s): , Work: . Sincerely, MD Rosa Isela Baltazar MD 02/11/2025 10:56:34 AM This report has been signed electronically.
--- NOTE | 2025-02-11 10:57 | OP.COLON_ITS ---
Patient Name: Naren Turner Procedure Date: 02/11/2025 10:18 AM Date of : 1960 Age: 64 Procedure: Colonoscopy Indications: High risk colon cancer surveillance: Personal history of colonic polyps, Family history of colon cancer Providers: Rosa Isela Cox MD Medicines: Monitored Anesthesia Care Patient Profile: This is a 64 year old male. Last Colonoscopy: June 2021. Complications: No immediate complications. Procedure: Pre-Anesthesia Assessment: - Prior to the procedure, a History and Physical was performed, and patient medications and allergies were reviewed. The patient's tolerance of previous anesthesia was also reviewed. The risks and benefits of the procedure and the sedation options and risks were discussed with the patient. All questions were answered, and informed consent was obtained. Prior Anticoagulants: The patient has taken no anticoagulant or antiplatelet agents. ASA Grade Assessment: Per anesthesia. After reviewing the risks and benefits, the patient was deemed in satisfactory condition to undergo the procedure. After I obtained informed consent, the scope was passed under direct vision. Throughout the procedure, the patient's blood pressure, pulse, and oxygen saturations were monitored continuously. The Colonoscope was introduced through the anus and advanced to the cecum, identified by the appendiceal orifice, ileocecal valve and palpation. The colonoscopy was performed without difficulty. The patient tolerated the procedure well. The quality of the bowel preparation was good. Scope In: 10:27:46 AM Scope Withdrawal Time 0 hours 13 minutes 55 seconds Scope Out: 10:46:09 AM Total Procedure Duration Time 0 hours 18 minutes 23 seconds Findings: The perianal and digital rectal examinations were normal. A less than 5 mm polyp was found in the descending colon. The polyp was semi-pedunculated. The polyp was removed with a hot snare. Resection and retrieval were complete. The entire examined colon appeared normal on direct and retroflexion views. Impression: - One less than 5 mm polyp in the descending colon, removed with a hot snare. Resected and retrieved. - The entire examined colon is normal on direct and retroflexion views. Recommendation: - Discharge patient to home. - Resume previous diet. - Continue present medications. - Await pathology results. - Repeat colonoscopy in 3 years for surveillance based on pathology results. Procedure Code(s): --- Professional --- 81887, PT, Colonoscopy, flexible; with removal of tumor(s), polyp(s), or other lesion(s) by snare technique Diagnosis Code(s): --- Professional --- Z86.010, Personal history of colonic polyps D12.4, Benign neoplasm of descending colon Z80.0, Family history of malignant neoplasm of digestive organs CPT copyright 2021 [employer]. All rights reserved. The codes documented in this report are preliminary and upon bowling ball mold assembler review may be revised to meet current compliance requirements. MD Rosa Isela Baltazar MD 02/11/2025 10:56:34 AM This report has been signed electronically. Number of Addenda: 0 Note Initiated On: 02/11/2025 10:18 AM
[2025-02-11 11:00] VITALS: BP 109/72; BP 150/88; PULSE 66; RESP 16; TEMP 36.4; O2SAT 97
--- NOTE | 2025-02-11 11:02 | PCM.POSTANE2 ---
Anesthesia Postop Eval I Sum Postop Eval Completion status Anesthesia document: Postop Eval 1 completed: Yes Anesthesia Postop Eval I Summary Anesthesia Postop Eval I Summary: Anesthesia Postop Eval I: Assessment Summary Airway patent Yes 02/11/25 10:56 [email or web address] Spontaneous unlabored Yes 02/11/25 10:56 [email or web address] respirations Mental status Awake,Calm 02/11/25 10:56 [email or web address] nausea No 02/11/25 10:56 [email or web address] Vomiting No 02/11/25 10:56 [email or web address] Anesthesia Postop Eval I: Fluid Summary Crystalloid volume administer 600 02/11/25 10:56 [email or web address] (ml) Colloids volume administered ( ml) Blood Product volume administered (ml) Total IV fluid infused 600 02/11/25 10:56 [email or web address] Anesthesia Postop Eval I: Summary Notes Anesthesia Complication No 02/11/25 10:56 [email or web address] Anesthesia Complication Comment: Post-operative progress note Anesthesia: Postop Eval II Evaluation Mental status: Awake Pain Level: 0 nausea: No Vomiting: No
[2025-02-11 11:14] VITALS: BP 150/88
== END 2025-02-11 11:21 | disposition home or self-care (01) ==
LOC: EN 08:17 → AC 08:18
PROVIDERS: PCP Internal Medicine; Referring Provider Internal Medicine; Visit Provider Surgery
PROC: 0DJD8ZZ Inspection of Lower Intestinal Tract, Via Natural or Artificial Opening Endoscopic (ICD-10-PCS; CPT 45378; principal; 2025-02-11 09:40)
DX: Z12.11 Encounter for screening for malignant neoplasm of colon (principal); K21.9 Gastro-esophageal reflux disease without esophagitis; Z79.899 Other long term (current) drug therapy; I10 Essential (primary) hypertension; Z86.0100 Personal history of colon polyps, unspecified; E78.00 Pure hypercholesterolemia, unspecified; Z87.891 Personal history of nicotine dependence; Z80.0 Family history of malignant neoplasm of digestive organs; F32.A Depression, unspecified; K63.5 Polyp of colon
CPT/HCPCS: 45385; 88305; J2405